=== PATIENT | male | born 1965 | race Caucasian/White ===

== ENCOUNTER 2019-08-15 15:09 | Outpatient (RCR) | payer OTHER, SELFPAY ==
--- NOTE | 2019-08-16 07:23 | HP.OTEVAL ---
Patient's Visit Information NICOLE PORTILLO is a 53 year old M, referred to Occupational Therapy by Chandu Magana MD, with a diagnosis of LE lymphedema. Date of Evaluation: 08/15/19 Occupational Therapist: Helen Bailey, MIMA/Nguyen, CHT - Subjective Subjective: This 53-year-old male was seen for OT eval with dx of lymphedema- pt states he noticed swelling in LE since 2018. pt state [id number] pt states he did notice swelling in left LE but thought it was due to scar tissue from fx and sx. pt states he did try compression socks, but he had a hard time getting time on. pt states he has constant itching of the skin- he states he has used a moisturizer and cortisone cream. Pt is in wc most of the time with his legs down and does not elevate his legs much- pt would like to know. where he can get a compression pump for his LE. Pt states has recommended it to him, but he is concerned with the pressure on his legs. - Pain bilateral LE 3 Pain Intensity Range: 3 - Lymphedema (Circumferential Measure) Mid-foot: right 30cm left 26cm Ankle: right 34cm left 38cm Lower calf: right 37cm left 42cm Largest calf: right 47cm left 46cm Below knee: right 40cm left 39cm - Sensation Sensation Comments: pins and needles sensation with buring - Lower Limb Functional Index Lower Extremity Functional Score: 23 - Rehabilitation General Assessment: Pt demo with BLE lymphedema in need of ed. on what dx is and mtg of lymphedema. Pt demo with minimual mobility in ankle and toes due to swelling and past hx of bilateral ankle sx. Pt would benefit from skilled OT services 3 visits to ensure ed. on mtg of lymphedema- pt was ed. on lymphedema compression garments- pt is unable to put compression hose on so therapist ed. pt on velcro closure compression alternatives, lymphedema system, lymph ex. to stimulate circulation pt was given handout and agree to POC. Rehabilitation Potential: Questionable - Anticipated Interventions Anticipated Interventions: Education re Life-long lymphedema Management, Education re Self-Bandaging Techniques, Education re Skin Care and Precautions, Education re Correct Donning Tech,Care&Wearing Sched Comp Garments, Caregiver Training - Visit Plan TEXT: Thank you for the opportunity to evaluate your patient. For Medicare and Medicare HMO plans, please review the plan of care and approve it. It will need to be FAXED BACK to us at [phone] for Medicare purposes. Please let me know if there are questions or concerns regarding this plan of care. Physician Signature: Date:
--- NOTE | 2019-10-14 18:15 | HP.OTDCNRP_ITS ---
HP - Discharge Summary - Patient Information NICOLE PORTILLO was seen in my office for initial evaluation on 08/15/19. The following Plan of Care was established for this patient: - Anticipated Interventions Anticipated Interventions: Education re Life-long lymphedema Management, E ducation re Self-Bandaging Techniques, Education re Skin Care and Precautions, Education re Correct Donning Tech,Care&Wearing Sched Comp Garments, Caregiver Training This patient was last seen in our office 08/15/19. Pertinent comments regarding their Occupational therapy will appear below: PT was seen for OT eval only. Pt called with question on compression garment first week of Sep. Therapist has attempted to call pt x2 with two different numbers but has not been able to speak with pt to answer his questions. Pt d/c from OT due to time lapse in services. At this point I will be discontinuing this patient from occupational therapy. I would be happy to see this patient again in the future if found appropriate by the physician. Thank you! Helen Bailey, OTR/L, CHT
== END 2019-08-15 19:00 | disposition home or self-care (01) ==
LOC: OT 15:09
PROVIDERS: Family Provider Family Medicine; PCP Family Medicine; Referring Provider Family Medicine; Visit Provider Family Medicine
DX: I89.0 Lymphedema, not elsewhere classified (principal)
CPT/HCPCS: 97166

== ENCOUNTER 2025-07-19 20:55 | Inpatient (IN) | payer SELFPAY ==
[2025-07-19 20:59] VITALS: BP 137/96; PULSE 108; RESP 20; TEMP 36.9; O2SAT 89; BMI 29.0
[2025-07-19 21:03] VITALS: BP 137/96; PULSE 105; PULSE 108; RESP 20; TEMP 36.9; O2SAT 92; O2SAT 94
--- NOTE | 2025-07-19 21:24 | CT_ITS ---
PROCEDURE: CTA CHEST W/WO CONTRAST 07/19/2025 REASON FOR EXAM: RULE OUT PE TECHNIQUE: Procedure Code: [id number] Modality: CT Procedure: CTA CHEST W/WO CONTRAST Multiplanar Sagittal and Coronal images were obtained. CONTRAST: VOLUME: mL One or more dose reduction techniques were used (e.g., Automated exposure control, adjustment of the mA and/or kV according to patient size, use of iterative reconstruction technique). FINDINGS: Concentrated contrast material within the SVC and left subclavian vein results in streak artifact, limiting evaluation of the adjacent anatomy. No filling defect suggestive of a pulmonary embolism is identified to the secondary branches of the pulmonary arteries. Subtle linear density in the right upper lobe along the major fissure likely represents subsegmental atelectasis or scarring. Infiltrates are less likely. Hazy and reticular opacities in the right lung base are concerning for infiltrates. The heart and great vessels appear unremarkable. Multiple enlarged pretracheal lymph nodes measuring 10 mm in their short axis dimension. Right hilar lymphadenopathy measuring 14 mm in its short axis dimension. No acute osseous abnormality. Moderate dextro convex thoracic scoliosis with mild spondylosis. Cholelithiasis. Large amount of ascites within the visualized upper abdomen. CT/CTA Chest W/WO Contrast IMPRESSION: No CT evidence of a pulmonary embolism. Right pulmonary densities concerning for infiltrates, as described above. Right hilar and mediastinal lymphadenopathy, likely reactive. Cholelithiasis. Ascites. Reading Location: [id number]
--- NOTE | 2025-07-19 21:24 | EKG12_ITS ---
Test Reason : SOB Blood Pressure : */* mmHG Vent. Rate : 102 BPM Atrial Rate : 107 BPM P-R Int : * ms QRS Dur : 86 ms QT Int : 472 ms P-R-T Axes : * 240 49 degrees QTcB Int : 615 ms Critical Test Result: Long QTc Suspect arm lead reversal, interpretation assumes no reversal Normal sinus rhythm Lateral infarct , age undetermined Inferior-posterior infarct , age undetermined Prolonged QT Abnormal ECG Confirmed by CLAUDIO KASPER, MARIELENA ([id number]), photographic editor GEREMIAS VEGA ([id number]) on 07/21/2025 1:43:51 PM Referred By: Confirmed By: MARIELENA SNYDER MD
--- NOTE | 2025-07-19 21:25 | CT_ITS ---
PROCEDURE: ABDOMEN/PELVIS W IV CONT ONLY 07/19/2025 REASON FOR EXAM: FEELS UNWELL, EPIGASTRIC PAIN TECHNIQUE: Procedure Code: [id number] Modality: CT Procedure: ABDOMEN/PELVIS W IV CONT ONLY Coronal and Sagittal reconstruction series were provided. CONTRAST: VOLUME: mL One or more dose reduction techniques were used (e.g., Automated exposure control, adjustment of the mA and/or kV according to patient size, use of iterative reconstruction technique. FINDINGS: For findings above the diaphragm, please refer to the dedicated CTA of the chest performed on the same day. A large amount of ascites is noted throughout the peritoneal cavity, which limits evaluation. Localization of inflammatory changes is significantly hampered. A nodular contour of the liver is noted, which could indicate underlying chronic hepatocellular disease. Cholelithiasis. No gallbladder wall thickening. A small focus of air is also noted within the fundus of the gallbladder. Mild wall thickening of the right side of the colon, concerning for mild colitis. The appendix is visualized and normal-appearing. No evidence of a bowel obstruction. Several nondilated air- filled loops of large and small bowel likely represent mild adynamic ileus. Mild atherosclerotic calcifications. Mild dextro convex thoracolumbar scoliosis with moderate spondylosis. Severe degenerative changes are noted within the left hip including severe superior joint space narrowing with [id number] interaction, articular surface flattening, subchondral cyst formation, and marginal osteophytosis. An incompletely imaged intramedullary cayla is noted within the proximal left femur. Total right hip arthroplasty. CT/Abdomen/Pelvis W IV Cont ONLY IMPRESSION: Large amount of ascites. Cholelithiasis. Mild wall thickening of the right side of the colon, concerning for mild coliti s. Mild adynamic ileus of the bowel. Additional nonacute findings, as described above. Reading Location: [id number]
[2025-07-19 21:44] LABS: Hematocrit 29.6 % (40-54); Hemoglobin 9.8 g/dL (13.0-16.5); Immature Granulocytes Count 0.020 X10^3/uL (0.0-0.0); Mean Corp Hgb Conc 33.1 g/dL (32-36); Mean Corpuscular Volume 81.1 fL (80-94); Mean Platelet Vol. 8.9 fl (6.2-12.0); NRBC Flagged by Analyzer 0 % (0-5); Platelet Count 185 K/mm3 (150-450); RBC Distribution Width CV 14.6 % (11.6-14.6); RBC Distribution Width SD 43.0 fl (35.1-43.9); Red Blood Count 3.65 M/mm3 (4.6-6.2); White Blood Count 3.6 K/mm3 (4.4-11.0)
[2025-07-19 22:03] VITALS: BP 99/74; PULSE 104; RESP 18; TEMP 37.3; O2SAT 97
[2025-07-19 22:04] LABS: Lipase 91 U/L (13-75)
[2025-07-19 22:05] LABS: AST(SGOT) 50 U/L (<=37); Alanine Aminotransfer ALT/SGPT 20 U/L (<=46); Albumin, Serum 2.1 g/dL (3.4-4.8); Alkaline Phosphatase 773 U/L (40-129); Anion Gap 8 (5-15); BUN 9 mg/dL (4-19); BUN/Creat Ratio 12.7 RATIO (10-20); Calcium,Total 7.5 mg/dL (7.6-11.0); Carbon Dioxide 34.6 mmol/L (21.0-32.0); Chloride 83 mmol/L (98-108); Estimated Creatinine Clearance 126.13 ml/min (50-250); Globulin 2.9 g/dL (2.2-4.2); Glucose 108 mg/dL (70-99); Potassium 2.3 mmol/L (3.3-5.1); Pro- Brain NATRIURETIC PEPTIDE 1067 pg/mL (<=900); Troponin T High Sensitivity 62 ng/L (<=22)
--- NOTE | 2025-07-19 22:17 | EX.ED.DYSGE1 ---
HPI History of Present Illness Chief Complaint: Shortness of Breath Narrative Narrative: Patient is a 59-year-old male presenting to the emergency department for feeling unwell for the past 2 to 3 days. Patient is a very poor historian. He has a past medical history of cirrhosis and has paracentesis done every other week. He had a femur fracture repair done in December and states that he has been in a rehab facility since then. Patient states about 2 days ago he developed URI type symptoms which included congestion, productive cough. He denies fever, chills, chest pain, shortness of breath. Patient states he has some epigastric abdominal discomfort. Denies any nausea or vomiting. Denies any diarrhea. Last had a paracentesis done 3 weeks ago. EMS placed him on oxygen, he does not wear any at baseline. [facility] Medical History unable to obtain Home Medications ?Medication ?Instructions ?Recorded ?Last Taken ?Type aspirin 81 mg capsule 81 mg PO BID 07/19/25 Unknown History bumetanide 1 mg tablet 1 mg PO BID 07/19/25 Unknown History buspirone 7.5 mg tablet 7.5 mg PO BID 07/19/25 Unknown History clonazepam 0.5 mg tablet 0.5 mg PO BID 07/19/25 Unknown History clonazepam 1 mg tablet 1 mg PO BID 07/19/25 Unknown History docusate sodium 100 mg capsule 100 mg PO BID 07/19/25 Unknown History (Col-Rite) dupilumab 300 mg/2 mL subcutaneous 300 mg subcut .q2w 07/19/25 Unknown History pen injector (Dupixent) fluticasone propionate 50 1 spray intranasal DAILY 07/19/25 Unknown History mcg/actuation nasal spray,suspension (24 Hour Allergy Relief) folic acid 1 mg tablet 1 mg PO DAILY 07/19/25 Unknown History guaifenesin 600 mg tablet, 600 mg PO BID 07/19/25 Unknown History extended release 12 hr levothyroxine 25 mcg tablet 25 mcg PO MOTUWETHFRSA 07/19/25 Unknown History levothyroxine 50 mcg tablet 50 mcg PO PARK 07/19/25 Unknown History (Euthyrox) magnesium gluconate 27 mg 27 mg PO DAILY 07/19/25 Unknown History magnesium (500 mg) tablet (Mag-G) miconazole nitrate 2 % topical 1 applic topical DAILY 07/19/25 Unknown History powder (Antifungal (miconazole)) multivitamin with minerals (DAILY 1 tab PO DAILY 07/19/25 Unknown History VITAMIN FORMULA-MINERALS tablet) pantoprazole 40 mg tablet,delayed 40 mg PO DAILY 07/19/25 Unknown History release potassium chloride 20 mEq 20 meq PO DAILY 07/19/25 Unknown History tablet,extended release sodium bicarbonate 650 mg tablet 650 mg PO BID 07/19/25 Unknown History tamsulosin 0.4 mg capsule (Flomax) 0.4 mg PO BID 07/19/25 Unknown History thiamine HCl (vitamin B1) 100 mg 100 mg PO DAILY 07/19/25 Unknown History tablet Allergy/AdvReac Type Severity Reaction Status Date / Time enoxaparin Allergy Mild Upset Verified 07/19/25 20:57 Stomach Penicillins Allergy Unknown PT UNSURE Verified 07/19/25 20:57 OF REACTION Surgical History unable to obtain Social History Smoking Status: Never smoker ROS ROS ED ROS Narrative see HPI EXAM Physical Exam Narrative Exam Narrative: Vital signs: Reviewed General: Alert and orientedx3. No acute distress. Chronically ill appearing. HEENT: Head is normocephalic and atraumatic, sinuses nontender, pupils equal round and reactive. Nares are patent. Oropharynx and throat exams normal. Neck: Supple without lymphadenopathy nontender Cardiovascular: Tachycardic rate and regular rhythm, no murmurs. No rubs or gallops. Normal S1 and S2 Respiratory: Coarse lung sounds throughout. No wheezing. On 2 L NC saturating 94%. Abdominal: Soft and nontender. Fluid wave. Normal bowel sounds. No guarding or rebound. Nonsurgical abdomen Extremities: Chronic appearing bilateral lower extremity lymphedema. No erythema, warmth, tenderness to palpation. Skin: No rash or redness. Neurological: Cranial nerves II through XII are grossly intact. Normal strength and sensation. Normal cerebellar function The rest of the physical exam is unremarkable Const Vital Signs: 07/19/25 20:59 07/19/25 21:03 07/19/25 21:03 Temperature 98.5 F 98.5 F Temperature Source Oral Oral Pulse Rate 108 H 105 H 108 H Respiratory Rate 20 H 20 H 20 H Respiratory Effort Respiratory Pattern Blood Pressure 137/96 H 137/96 H 137/96 H Blood Pressure Mean 109 109 109 Pulse Ox 89 92 94 Oxygen Delivery Method Room Air Nasal Cannula Nasal Cannula Oxygen Flow Rate (L/min) 2 2 07/19/25 21:44 07/19/25 22:03 07/19/25 22:41 Temperature 99.1 F Temperature Source Oral Pulse Rate 104 H Respiratory Rate 18 Respiratory Effort Normal Non-Labored Respiratory Pattern Normal Blood Pressure 99/74 Blood Pressure Mean 82 Pulse Ox 97 Oxygen Delivery Method Nasal Cannula Nasal Cannula Nasal Cannula Oxygen Flow Rate (L/min) 2 2 2 07/19/25 23:00 07/20/25 00:00 Temperature 98.4 F 98.5 F Temperature Source Oral Oral Pulse Rate 103 H 100 Respiratory Rate 23 H 24 H Respiratory Effort Respiratory Pattern Blood Pressure 132/99 H 126/89 H Blood Pressure Mean 110 101 Pulse Ox 95 100 Oxygen Delivery Method Nasal Cannula Nasal Cannula Oxygen Flow Rate (L/min) 2 2 MDM MDM MDM Narrative Medical decision making narrative: Patient is a 59-year-old male presenting to the emergency department for URI type symptoms. Patient was seen and examined. He is mildly tachycardic at 108, appears comfortable. BP of 137/96. He is afebrile saturating 94% on 2 L nasal cannula. Differential includes but is not limited to: PE, pneumonia, URI, ACS, pleural effusion. Patient does have significant ascites however has no abdominal pain on exam, he is afebrile. I do not think this is SBP. Given the patient's immobilization, CTA of the chest was obtained to rule out pulmonary embolism. Given the patient's tachycardia and new oxygen requirement labs were obtained to evaluate for sepsis as well. CBC with leukopenia of 3.6 and anemia of 9.8. No baseline to compare to. CMP with hypokalemia of 2.3 and hyponatremia 126. Potassium was repleted IV and p.o. Hypomagnesia of 1.1, IV repletion given. Mildly elevated AST of 50 and elevated alk phos of 773. Elevated troponin of 62 with reflex of 64 no significant delta change and BNP of 1067. Again no baseline labs to compare to but I do suspect that his troponin and BNP are elevated at baseline due to his cirrhosis. EKG shows low voltage QRS, very difficulty to interpret based off this. Appears to be NSR, no ischemic changes. No dysrhythmia. CTA of the chest shows no evidence of pulmonary embolism. Right pulmonary densities concerning for infiltrates. There are right hilar and mediastinal lymphadenopathy. CT abdomen with large amount of ascites. Cholelithiasis. Mild right sided colitis and mild adynamic ileus of the bowel. Patient will require admission for his electrolyte abnormalities and oxygen requirement. Patient was given Levaquin given allergy to penicillins with unknown reaction. Patient admitted to Dr. Guy for further management. Clinical impression Hypomagnesia Hypokalemia Hyponatremia Elevated troponin Ascites Pneumonia History & Record Review Discussion w/independent historian: EMS personnel and Patient Lab Data Attestation: I reviewed the patient's lab results. Labs: Laboratory Results - last 24 hr 07/19/25 07/19/25 07/19/25 19:39 21:15 23:31 WBC 3.6 L RBC 3.65 L Hgb 9.8 L Hct 29.6 L MCV 81.1 MCH 26.8 L MCHC 33.1 RDW Std Deviation 43.0 RDW Coeff of Mery 14.6 Plt Count 185 MPV 8.9 Immature Gran % (Auto) 0.600 Neut % (Auto) 72.4 H Lymph % (Auto) 17.5 L [place] % (Auto) 7.5 Eos % (Auto) 1.4 Baso % (Auto) 0.6 Absolute Neuts (auto) 2.6 Absolute Lymphs (auto) 0.63 L Nucleated RBC % 0 Sodium 126 L Potassium 2.3 L* Chloride 83 L Carbon Dioxide 34.6 H Anion Gap 8 BUN 9 Creatinine 0.71 Estim Creat Clear Calc 126.13 Est GFR (MDRD) Non-Af 105 BUN/Creatinine Ratio 12.7 Glucose 108 H Lactic Acid 1.0 Calcium 7.5 L Magnesium 1.1 L Total Bilirubin 1.23 AST 50 H ALT 20 Alkaline Phosphatase 773 H Troponin T High Sens 62 H* Troponin T Hi Sens 2 Hr NT pro BNP II 1067 H Total Protein 4.9 L Albumin 2.1 L Globulin 2.9 Albumin/Globulin Ratio 0.7 L Lipase 91 H Urine Color Yellow Urine Clarity Clear Urine pH 7.0 Ur Specific [place] 1.005 Urine Protein Negative Urine Glucose (UA) Normal Urine Ketones Negative Urine Occult Blood Negative Urine Nitrite Negative Urine Bilirubin Negative Urine Urobilinogen 1 H Ur Leukocyte Esterase Negative Urine RBC 0 SEEN Urine WBC 0 SEEN Ur Squamous Epith Cells 0 SEEN Urine Bacteria 0 SEEN Urine Mucus 0 SEEN 07/19/25 23:37 WBC RBC Hgb Hct MCV MCH MCHC RDW Std Deviation RDW Coeff of Mery Plt Count MPV Immature Gran % (Auto) Neut % (Auto) Lymph % (Auto) [place] % (Auto) Eos % (Auto) Baso % (Auto) Absolute Neuts (auto) Absolute Lymphs (auto) Nucleated RBC % Sodium Potassium Chloride Carbon Dioxide Anion Gap BUN Creatinine Estim Creat Clear Calc Est GFR (MDRD) Non-Af BUN/Creatinine Ratio Glucose Lactic Acid Calcium Magnesium Total Bilirubin AST ALT Alkaline Phosphatase Troponin T High Sens Troponin T Hi Sens 2 Hr 64 H* NT pro BNP II Total Protein Albumin Globulin Albumin/Globulin Ratio Lipase Urine Color Urine Clarity Urine pH Ur Specific [place] Urine Protein Urine Glucose (UA) Urine Ketones Urine Occult Blood Urine Nitrite Urine Bilirubin Urine Urobilinogen Ur Leukocyte Esterase Urine RBC Urine WBC Ur Squamous Epith Cells Urine Bacteria Urine Mucus Radiography Diagnostic Testing: Clinical Impression(s) from Imaging Studies Chest CTA 07/19/25 21:24 IMPRESSION: No CT evidence of a pulmonary embolism. Right pulmonary densities concerning for infiltrates, as described above. Right hilar and mediastinal lymphadenopathy, likely reactive. Cholelithiasis. Ascites. Reading Location: [facility] Abdomen/Pelvis CT 07/19/25 21:25 IMPRESSION: Large amount of ascites. Cholelithiasis. Mild wall thickening of the right side of the colon, concerning for mild colitis. Mild adynamic ileus of the bowel. Additional nonacute findings, as described above. Reading Location: [facility] Discharge Plan Triage Chief Complaint: Shortness of Breath ED Provider: Elizabeth Agee Dx/Rx/DC Orders Prescriptions: No Action aspirin 81 mg capsule 81 mg PO BID clonazepam 1 mg tablet 1 mg PO BID buspirone 7.5 mg tablet 7.5 mg PO BID bumetanide 1 mg tablet 1 mg PO BID clonazepam 0.5 mg tablet 0.5 mg PO BID docusate sodium [Col-Rite] 100 mg capsule 100 mg PO BID Dupixent Pen 300 mg/2 mL pen injector 300 mg subcut .q2w fluticasone propionate [24 Hour Allergy Relief] 50 mcg/actuation spray,suspension 1 spray intranasal DAILY Rx Instructions: administer into each nostril folic acid 1 mg tablet 1 mg PO DAILY guaifenesin 600 mg tablet extended release 12hr 600 mg PO BID levothyroxine 25 mcg tablet 25 mcg PO MOTUWETHFRSA levothyroxine [Euthyrox] 50 mcg tablet 50 mcg PO PARK magnesium gluconate [Mag-G] 27 mg magnesium (500 mg) tablet 27 mg PO DAILY miconazole nitrate [Antifungal (miconazole)] 2 % powder 1 applic topical DAILY sodium bicarbonate 650 mg tablet 650 mg PO BID pantoprazole 40 mg tablet,delayed release (DR/EC) 40 mg PO DAILY potassium chloride 20 mEq tablet extended release 20 meq PO DAILY DAILY VITAMIN FORMULA-MINERALS Tablet 1 tab PO DAILY tamsulosin [Flomax] 0.4 mg capsule 0.4 mg PO BID thiamine HCl (vitamin B1) 100 mg tablet 100 mg PO DAILY Primary Care Provider: Chandu Magana Referrals: Chandu Magana MD [Primary Care Provider, Medical] Print Language: Latvian
[2025-07-19] MEDS: Potassium Chloride Oral Tablet 20 MEQ 40 MEQ PO (22:29)
[2025-07-19] MEDS: Potassium Chloride 10mEq/100mL 10 MEQ/100 ML IV.SOLN. 100 MEQ IV BOLUS ×2 (22:29→23:31)
[2025-07-19 23:00] VITALS: BP 132/99; PULSE 103; RESP 23; TEMP 36.9; O2SAT 95
[2025-07-19 23:25] LABS: Magnesium 1.1 mg/dL (1.5-2.2)
[2025-07-19 23:35] LABS: Mucous, Urine 0 SEEN /hpf (<or=2+); Red Blood Cells-Urine 0 SEEN /hpf (0-5); Squamous Epithelial Cells - UA 0 SEEN /hpf (0-5)
[2025-07-19 23:39] LABS: Color, Urine Yellow (Yellow); Glucose, Dipstick Normal (Normal); Ketone-Dipstick Negative (Negative); Leukocyte Esterase-Dipstick Negative /ul (Negative); Nitrite-Dipstick Negative (Negative); Occult Blood-Urine Negative /ul (Negative); Protein-Dipstick Negative (Negative); Specific Gravity, Urine 1.005 (1.002-1.030); Urine Bilirubin Dipstick Negative (Negative)
[2025-07-20] VITALS (14 sets, daily range): BP systolic 90–126; BP diastolic 57–91; PULSE 82–114; RESP 16–25; TEMP 36.6–37.2; O2SAT 92–100; BMI 23.6; BMI 23.8
--- NOTE | 2025-07-20 00:02 | EKG12_ITS ---
Test Reason : REPEAT Blood Pressure : */* mmHG Vent. Rate : 100 BPM Atrial Rate : 100 BPM P-R Int : 184 ms QRS Dur : 64 ms QT Int : 316 ms P-R-T Axes : 27 265 39 degrees QTcB Int : 407 ms Sinus rhythm with occasional Premature ventricular complexes Possible Right ventricular hypertrophy Inferior infarct , age undetermined Anterolateral infarct , age undetermined Abnormal ECG Confirmed by CLAUDIO KASPER, MARIELNEA ([id number]), purchasing expeditor GEREMIAS VEGA ([id number]) on 07/21/2025 1:44:12 PM Referred By: Confirmed By: MARIELENA SNYDER MD
[2025-07-20 00:03] LABS: Troponin T High Sens 2 HR 64 ng/L (<=22)
[2025-07-20] MEDS: Magnesium Sulfate 2 GM in Dextrose 5%-Water (100mL Bag) 100 ML IV ×2 (00:07→10:30)
--- NOTE | 2025-07-20 00:57 | HP.PCM.HOS_ITS ---
HPI - General General Date of Admission: 07/20/25 Date of Service: 07/20/25 Chief Complaint: Shortness of breath HPI Narrative NICOLE PORTILLO, is a 59 M who presented to the emergency department at [facility] on 07/19/2025 from the [facility] for shortness of breath. The patient reported that he felt like he was getting a cold the last 2 to 3 days. He has a history of cirrhosis and has paracenteses done every other week. He is overdue for his paracentesis his transportation was not able to be arranged to [place] where he typically gets his procedure done. He had a femoral fracture repair done in December and was initially at [facility] for rehab. He was unhappy there and then transferred to the [facility]. He states he has only been there a few days. I asked him what the overall prognosis was for his liver and if he was on a transplant list he said no. He follows with his primary care physician and does not see gastroenterology or transplant team regularly. His cirrhosis is related to previous alcohol abuse. Patient states he has had some congestion in his chest and nasal cavity as well as mild pharyngitis and a productive cough of white phlegm. He has had no fever or chills per his report. He has no significant abdominal pain. He has some mild epigastric discomfort which she states is pretty typical for him when he misses having paracentesis done. When I asked him why he was here he states I do not know why they sent me in. He states his baseline sodium is between 121 and 123. He no longer drinks. He denies ever using drugs. He does not smoke. Vital signs on presentation showed temperature 98.5, heart rate 108, respiratory 20, blood pressure was 137/96 and pulse ox was 89% on room air. Placed on 2 L nasal cannula and sats have improved to 97-100 %. CBC shows leukopenia which I suspect is chronic however baseline is unknown, anemia with a hemoglobin of 9.8 again I suspect this is chronic but again baseline is unknown. Surprisingly, his platelet count is normal. He has a minimal left shift with a 72.4% neutrophilia. Coags are slightly elevated with a PT of 15 and a PTT of 40.3. His chemistry panel is markedly abnormal with a sodium of 126 (patient states baseline is between 121 and 123), hypokalemia potassium of 2.3 and elevated serum bicarb at 34.6 which again I suspect is chronic. Lactic acid was normal at 1.0. His magnesium was low at 1.1. Alk phos is elevated at 773. His initial troponin was 62 with a delta of 64. 4-hour troponin is pending. His BNP was only marginally elevated 1067. Lipase was slightly elevated at 91 but patient not having abdominal pain. UA was not consistent with infection. He has 1 urobilinogen but all other tested aspects of the urinalysis were negative. With his recent fractures PE was of concern. CT of his chest was performed and unremarkable. He does have what appears to be an elevated right hemidiaphragm with significant ascites pushing up into the right base of the lung just surrounding the liver upon my review he does not have a distinct infiltrate. CT abdomen/pelvis was performed and showed large volume ascites, cholelithiasis, thickening of the right colon, and a mild adynamic ileus. [facility] Medical History (Updated 07/20/25 @ 02:[address] Mira Guy, DO) Hip fracture requiring operative repair Chronic edema Hip fracture, left History of alcoholism Lymphopenia Chronic hyponatremia Chronic anemia Alcoholic cirrhosis of liver Medical History unable to obtain Home Medications ?Medication ?Instructions ?Recorded ?Last Taken ?Type aspirin 81 mg capsule 81 mg PO BID 07/19/25 Unknow n History bumetanide 1 mg tablet 1 mg PO BID 07/19/25 Unknown History buspirone 7.5 mg tablet 7.5 mg PO BID 07/19/25 Unkno wn History clonazepam 0.5 mg tablet 0.5 mg PO BID 07/19/25 Unkno wn History clonazepam 1 mg tablet 1 mg PO BID 07/19/25 Unknown History docusate sodium 100 mg capsule 100 mg PO BID 07/19/25 Unknown History (Col-Rite) dupilumab 300 mg/2 mL subcutaneous 300 mg subcut .q2w 07/19/25 Unknown History pen injector (Dupixent) fluticasone propionate 50 1 spray intranasal DAILY Unknown History mcg/actuation nasal spray,suspension (24 Hour Allergy Relief) folic acid 1 mg tablet 1 mg PO DAILY 07/19/25 Unkno wn History guaifenesin 600 mg tablet, 600 mg PO BID 07/19/25 Unkn own History extended release 12 hr levothyroxine 25 mcg tablet 25 mcg PO MOTUWETHFRSA Unknown History levothyroxine 50 mcg tablet 50 mcg PO PARK 07/19/25 Unkn own History (Euthyrox) magnesium gluconate 27 mg 27 mg PO DAILY 07/19/25 Unkn own History magnesium (500 mg) tablet (Mag-G) miconazole nitrate 2 % topical 1 applic topical DAILY 07/19/25 Unknown History powder (Antifungal (miconazole)) multivitamin with minerals (DAILY 1 tab PO DAILY 07/19 Unknown History VITAMIN FORMULA-MINERALS tablet) pantoprazole 40 mg tablet,delayed 40 mg PO DAILY 07/19 Unknown History release potassium chloride 20 mEq 20 meq PO DAILY 07/19/25 Unk nown History tablet,extended release sodium bicarbonate 650 mg tablet 650 mg PO BID 5 Unknown History tamsulosin 0.4 mg capsule (Flomax) 0.4 mg PO BID 07/19 Unknown History thiamine HCl (vitamin B1) 100 mg 100 mg PO DAILY 07/19 Unknown History tablet Allergy/AdvReac Type Severity Reaction Status Date / Time enoxaparin Allergy Mild Upset Verified 07/19/25 20:57 Stomach Penicillins Allergy Unknown PT UNSURE Verified 07/19/25 20:57 OF REACTION Surgical History (Updated 07/20/25 @ 02:[address] Mira Guy DO) History of right hip replacement Surgical History unable to obtain Social History Smoking Status: Never smoker ROS Constitutional Constitutional: Reports fatigue; Denies anorexia, change in weight, chills, fever(s), malaise, night sweats, weakness or other Eyes Eyes: Denies blurry vision, change in eye color, change in vision, discharge from eye(s), double vision, erythema, eye pain, loss of vision or other ENT HEENT: Reports nasal congestion, nasal discharge, post nasal drip and sore throat; Denies abnormal hearing, dysphagia, ear pain, epistaxis, headache(s), hearing loss, sinus pressure or other Cardiovascular Cardiovascular: Reports edema; Denies chest pain, claudication, dyspnea on exertion, lightheadedness, orthopnea, palpitations, paroxysmal nocturnal dyspnea, rapid heart rate, syncope or other Respiratory/Chest Respiratory/Chest: Reports cough, dyspnea, productive cough, shortness of breath at rest and shortness of breath with exertion; Denies excessive phlegm production, hemoptysis, wheezing or other Gastrointestinal Gastrointestinal: Reports other Details: Abdominal distention due to ascites ; Denies abdominal pain, coffee ground emesis, constipation, diarrhea, dyspepsia, hematemesis, hematochezia, loose stools, melena, nausea or vomiting Genitourinary Genitourinary: Denies burning urination, difficulty urinating, dysuria, hematuria, nocturia, urinary frequency, urinary hesitancy, urinary incontinence, urinary urgency or other Musculoskeletal Musculoskeletal: Reports joint pain; Denies arthralgias, back pain, joint stiffness, joint swelling, myalgias, neck pain or other Neurologic Neurologic: Reports abnormal gait; Denies abnormal speech, confusion, disequilibrium, dizziness, focal weakness, headache(s), numbness, paresthesias, seizure-like activity, seizures, syncope, tingling, tremor(s) or other Psychiatric Psychiatric: Reports anxiety and depression; Denies homicidal ideation, suicidal ideation or other Endocrine Endocrinology: Denies change in body appearance, cold intolerance, excessive sweating, heat intolerance, polydipsia, polyuria or other Hematologic/Lymphatic Hematologic/Lymphatic: Denies anemia, easy bleeding, easy bruising, lymphadenopathy or other Allergic/Immunologic Allergic/Immunologic: Denies rhinitis, hives, eczemia, asthma or other Vital Signs Vital Signs Vital Signs: 07/19/25 20:59 07/19/25 21:03 07/19/25 21:03 Temperature 98.5 F 98.5 F Temperature Source Oral Oral Pulse Rate 108 H 105 H 108 H Respiratory Rate 20 H 20 H 20 H Respiratory Effort Respiratory Pattern Blood Pressure 137/96 H 137/96 H 137/96 H Blood Pressure Mean 109 109 109 Pulse Ox 89 92 94 Oxygen Delivery Method Room Air Nasal Cannula Nasal Cannula Oxygen Flow Rate (L/min) 2 2 07/19/25 21:44 07/19/25 22:03 07/19/25 22:41 Temperature 99.1 F Temperature Source Oral Pulse Rate 104 H Respiratory Rate 18 Respiratory Effort Normal Non-Labored Respiratory Pattern Normal Blood Pressure 99/74 Blood Pressure Mean 82 Pulse Ox 97 Oxygen Delivery Method Nasal Cannula Nasal Cannula Nasal Cannula Oxygen Flow Rate (L/min) 2 2 2 07/19/25 23:00 07/20/25 00:00 Temperature 98.4 F 98.5 F Temperature Source Oral Oral Pulse Rate 103 H 100 Respiratory Rate 23 H 24 H Respiratory Effort Respiratory Pattern Blood Pressure 132/99 H 126/89 H Blood Pressure Mean 110 101 Pulse Ox 95 100 Oxygen Delivery Method Nasal Cannula Nasal Cannula Oxygen Flow Rate (L/min) 2 2 Weight Weight: 92 kg Body Mass Index (BMI) 29.0 Results Lab / Micro Data 07/19/25 21:15 07/19/25 21:15 Labs: Laboratory Results - last 24 hr 07/19/25 19:39: Lactic Acid 1.0 07/19/25 21:15: WBC 3.6 L, RBC 3.65 L, Hgb 9.8 L, Hct 29.6 L, MCV 81.1, MCH 26.8 L, MCHC 33.1, RDW Std Deviation 43.0, RDW Coeff of Mery 14.6, Plt Count 185, MPV 8.9, Immature Gran % (Auto) 0.600, Neut % (Auto) 72.4 H, Lymph % (Auto) 17.5 L, [place] % (Auto) 7.5, Eos % (Auto) 1.4, Baso % (Auto) 0.6, Absolute Neuts (auto) 2.6, Absolute Lymphs (auto) 0.63 L, Nucleated RBC % 0, Sodium 126 L, Potassium 2.3 L*, Chloride 83 L, Carbon Dioxide 34.6 H, Anion Gap 8, BUN 9, Creatinine 0.71, Estim Creat Clear Calc 126.13, Est GFR (MDRD) Non-Af 105, BUN/Creatinine Ratio 12.7, Glucose 108 H, Calcium 7.5 L, Magnesium 1.1 L, Total Bilirubin 1.23, AST 50 H, ALT 20, Alkaline Phosphatase 773 H, Troponin T High Sens 62 H*, NT pro BNP II 1067 H, Total Protein 4.9 L, Albumin 2.1 L, Globulin 2.9, A lbumin/Globulin Ratio 0.7 L, Lipase 91 H 07/19/25 23:31: Urine Color Yellow, Urine Clarity Clear, Urine pH 7.0, Ur Specific [place] 1.005, Urine Protein Negative, Urine Glucose (UA) Normal, Urine Ketones Negative, Urine Occult Blood Negative, Urine Nitrite Negative, Urine Bilirubin Negative, Urine Urobilinogen 1 H, Ur Leukocyte Esterase Negative, Urine RBC 0 SEEN, Urine WBC 0 SEEN, Ur Squamous Epith Cells 0 SEEN, Urine Bacteria 0 SEEN, Urine Mucus 0 SEEN 07/19/25 23:37: Troponin T Hi Sens 2 Hr 64 H* Micro: Microbiology 07/19/25 21:24 Mucosa - Nose SARS-CoV-2, Influenza & RSV (PCR) - Final Imaging Radiology Impression Chest CTA 07/19/25 21:24 IMPRESSION: No CT evidence of a pulmonary embolism. Right pulmonary densities concerning for infiltrates, as described above. Right hilar and mediastinal lymphadenopathy, likely reactive. Cholelithiasis. Ascites. Reading Location: [facility] Abdomen/Pelvis CT 07/19/25 21:25 IMPRESSION: Large amount of ascites. Cholelithiasis. Mild wall thickening of the right side of the colon, concerning for mild colitis. Mild adynamic ileus of the bowel. Additional nonacute findings, as described above. Reading Location: [facility] Assessment & Plan Assessment/Plan (1) Metabolic alkalosis: (2) Elevated brain natriuretic peptide (BNP) level: (3) Elevated troponin I level: (4) Shortness of breath: (5) Hypomagnesemia: (6) Acute hypokalemia: (7) Hypoxia: (8) Ascites due to alcoholic cirrhosis: PLAN: Plan Hypoxia/shortness of breath - Hypoxia mild at rest and 89% - PE ruled out with negative CTA of the chest - patient with large volume ascites likely compressive atelectasis in the right lower lobe that may be contributing - Also suspect upper respiratory infection - Since patient is effectively immunocompromised with cirrhosis will place on Levaquin for 5 days -Okay for p.o. as does not appear to be severe - Pulmonary toilet - I-S - Acapella - Mucinex - COVID/flu/RSV is negative - Check respiratory viral panel Large volume ascites secondary to chronic alcoholic cirrhosis - No concerns for SBP - Therapeutic paracentesis performed by me at the time of admission for his 6.2 L -12.5 postprocedure grams of albumin given per guidelines - Will need to get back on schedule for his every other week paracentesis post discharge - Continue home Bumex and increase to 1 mg 3 times daily. - Add Aldactone 50 mg daily - Consult palliative care Elevated BNP/troponin - Suspect related to liver disease - Will check echocardiogram - Cycle cardiac enzymes - Continue diuretics with Bumex but increase from 1 twice daily to 1 3 times daily Metabolic alkalosis - Patient has been on oral sodium bicarb at 650 mg twice daily -Will hold for now as serum bicarb is 35 - May need to discontinue bicarb at discharge depending on what labs look like Recent left femoral fracture - Weightbearing status unclear will need to get this information from the facility - PT/OT consultation - Will consult case management as I do anticipate patient will need placement at discharge GERD - Continue home PPI Hypothyroidism - Continue home levothyroxine - Check TSH Eczema/allergies - Patient is on home biologic every 2 weeks - Continue home nasal spray Chronic constipation - Continue home docusate 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
[2025-07-20 01:18] LABS: Prothrombin Time (Protime)PT. 15.0 SECONDS (11.7-14.9)
[2025-07-20 01:19] LABS: Partial Thromboplast Time 40.3 Seconds (24.1-36.2)
[2025-07-20] MEDS: levoFLOXacin IV 750 MG/150 ML BAG 100 MG IV (01:33)
[2025-07-20 02:41] LABS: Troponin T High Sens 4 HR 62 ng/L (<=22)
[2025-07-20] MEDS: Lidocaine 1% (20 ml mdv) 20 ML Vial INFILT (03:10)
--- NOTE | 2025-07-20 03:16 | PCM.OPRPT ---
Procedures Hospitalists Procedures: Other Procedure - See Report (Paracentesis) Operative Report (Standard) Operative Information Date of Procedure: 07/20/25 Pre-Operative Diagnosis: Ascites secondary to alcoholic cirrhosis Post-Operative Diagnosis: Ascites secondary to alcoholic cirrhosis Surgery/Procedure Performed: Paracentesis portfolio management marketing: No Type of Anesthesia: Local Procedure Start Time: 02:35 Procedure Stop Time: 03:10 Select all DRAINS/GRAFTS/IMPLANTS that apply: None Estimated Blood Loss: 0 cc Fluids Replaced: Albumin 12.5 g given Specimen collected: Yes Description of specimen(s) removed: 6.2 L of yellow ascitic fluid removed Description of surgery: Abdomen was assessed with ultrasound and large pocket of ascitic fluid identified. Insertion site was numbed after chlorhexidine prep with 5 cc of lidocaine 1% with no epinephrine. The needle then was advanced in subcutaneous and peritoneal lining was anesthetized with another 5 cc of lidocaine. The area was allowed to anesthetize after which a larger Angiocath needle was placed. Aspiration of ascitic fluid was obtained and the Angiocath was guided over top of the needle with the needle being removed. Following this the connecting catheter was placed and vacuum bottles were utilized to remove 6.2 L of fluid. Surgical Findings: 6.2 L of transparent yellow ascitic fluid removed Complications Complications: No
--- NOTE | 2025-07-20 03:29 | ECHOCS_ITS ---
Reason For Study Reason For Study: DYSPNEA Procedure This was a 2D Doppler, Color Flow transthoracic echocardiogram. The study was technically difficult. Definity deferred due to no on axis windows. Exam performed portable in patient room. Left Ventricle Normal LV size. The left ventricular ejection fraction is 60 %. Stage 1 diastolic dysfunction. No regional wall motion abnormalities noted. Right Ventricle Normal RV size. Normal systolic function. Atria Normal left atrium. Normal right atrium. Mitral Valve Normal mitral valve. Tricuspid Valve Normal tricuspid valve. Aortic Valve Trisinus/trileaflet aortic valve. Pulmonic Valve Normal pulmonic valve. Great Vessels Normal aortic root. The pulmonary artery is normal size. Inferior vena cava collapse with respiration. Pericardium/Pleural No pericardial effusion. Time Measurements MV dec time: 0.08 sec Doppler Measurements & Calculations MV E max rodney: 41.2 cm/sec Lat Peak E' Rodney: 9.1 cm/sec MV A max rodney: 46.2 cm/sec E/E' lat: 4.5 MV dec slope: 488.3 cm/sec2 MV E/A: 0.89 Ao V2 max: 114.2 cm/sec LV V1 max: 96.3 cm/sec Ao max P.2 mmHg LV V1 max P.7 mmHg Ao V2 mean: 85.4 cm/sec LV V1 mean P.6 mmHg Ao mean P.2 mmHg LV V1 mean: 77.2 cm/sec Ao V2 VTI: 21.0 cm LV V1 VTI: 17.9 cm AV (velocity ratio): 0.85 ECHO/Echo Complete Interpretation Summary Normal LV size. The left ventricular ejection fraction is 60 %. No regional wall motion abnormalities noted. Stage 1 diastolic dysfunction. Ordering Physician: Mira Guy Referring Physician: ESTEPHANIA SY Performed By: Iwona Becker RCS
[2025-07-20] MEDS: Albumin Human 25% (50 mL) 12.5 GM/50 ML IV.SOLN IV (05:03)
[2025-07-20] MEDS: Heparin Injection (Vial) 5,000 UNIT/ML VIAL 5000 UNIT SC ×3 (05:15→21:02)
[2025-07-20 06:25] LABS: Hematocrit 26.0 % (40-54); Hemoglobin 8.7 g/dL (13.0-16.5); Immature Granulocytes Count 0.020 X10^3/uL (0.0-0.0); Mean Corp Hgb Conc 33.5 g/dL (32-36); Mean Corpuscular Volume 81.8 fL (80-94); Mean Platelet Vol. 8.8 fl (6.2-12.0); NRBC Flagged by Analyzer 0 % (0-5); POSITIVE DIFFERENTIAL YES; Platelet Count 151 K/mm3 (150-450); RBC Distribution Width CV 14.6 % (11.6-14.6); RBC Distribution Width SD 43.6 fl (35.1-43.9); Red Blood Count 3.18 M/mm3 (4.6-6.2); White Blood Count 2.2 K/mm3 (4.4-11.0)
[2025-07-20 06:58] LABS: AST(SGOT) 39 U/L (<=37); Alanine Aminotransfer ALT/SGPT 15 U/L (<=46); Albumin, Serum 2.1 g/dL (3.4-4.8); Alkaline Phosphatase 591 U/L (40-129); Anion Gap 8 (5-15); BUN 8 mg/dL (4-19); BUN/Creat Ratio 13.6 RATIO (10-20); Calcium,Total 7.5 mg/dL (7.6-11.0); Carbon Dioxide 34.2 mmol/L (21.0-32.0); Chloride 85 mmol/L (98-108); Estimated Creatinine Clearance 139.85 ml/min (50-250); Globulin 2.6 g/dL (2.2-4.2); Glucose 84 mg/dL (70-99); Magnesium 1.5 mg/dL (1.5-2.2); Potassium 2.9 mmol/L (3.3-5.1)
--- NOTE | 2025-07-20 08:00 | PN.HOSP_ITS ---
Reason for Visit Chief Complaint: Shortness of breath Subjective Subjective Still with lower extremity edema. Abdomen feeling better after the paracentesis. Objective Data Objective Data Vital Signs: Vital Signs Temp Pulse Resp BP Pulse Ox O2 Del Method O2 Flow Rate 36.6 C 92 16 101/73 99 Nasal Cannula 2 07/20/25 04:00 07/20/25 05:28 07/20/25 04:00 07/20/25 05:28 07/20/25 05:28 07/20/25 05:57 07/20/25 05:57 Oxygen Flow Rate (L/min) 2 Oxygen Delivery Method Nasal Cannula Weight: 74.843 kg Body Mass Index (BMI) 23.6 Intake & Output: Intake and Output for Last 24 Hours 07/18/25 07/19/25 07/20/25 23:59 23:59 23:59 Intake Total 100 / 100 504 / 504 Balance 100 / 100 504 / 504 Lab / Micro Data 07/20/25 06:03 07/20/25 06:03 Labs: Laboratory Results - last 24 hr 07/19/25 19:39: Lactic Acid 1.0 07/19/25 21:15: WBC 3.6 L, RBC 3.65 L, Hgb 9.8 L, Hct 29.6 L, MCV 81.1, MCH 26.8 L, MCHC 33.1, RDW Std Deviation 43.0, RDW Coeff of Mery 14.6, Plt Count 185, MPV 8.9, Immature Gran % (Auto) 0.600, Neut % (Auto) 72.4 H, Lymph % (Auto) 17.5 L, [place] % (Auto) 7.5, Eos % (Auto) 1.4, Baso % (Auto) 0.6, Absolute Neuts (auto) 2.6, Absolute Lymphs (auto) 0.63 L, Nucleated RBC % 0, PT 15.0 H, INR 1.2, APTT 40.3 H, Sodium 126 L, Potassium 2.3 L*, Chloride 83 L, Carbon Dioxide 34.6 H, Anion Gap 8, BUN 9, Creatinine 0.71, Estim Creat Clear Calc 126.13, Est GFR (MDRD) Non-Af 105, BUN/Creatinine Ratio 12.7, Glucose 108 H, Calcium 7.5 L, M agnesium 1.1 L, Total Bilirubin 1.23, AST 50 H, ALT 20, Alkaline Phosphatase 773 H, Troponin T High Sens 62 H*, NT pro BNP II 1067 H, Total Protein 4.9 L, A lbumin 2.1 L, Globulin 2.9, Albumin/Globulin Ratio 0.7 L, Lipase 91 H 07/19/25 23:31: Urine Color Yellow, Urine Clarity Clear, Urine pH 7.0, Ur Specific [place] 1.005, Urine Protein Negative, Urine Glucose (UA) Normal, Urine Ketones Negative, Urine Occult Blood Negative, Urine Nitrite Negative, Urine Bilirubin Negative, Urine Urobilinogen 1 H, Ur Leukocyte Esterase Negative, Urine RBC 0 SEEN, Urine WBC 0 SEEN, Ur Squamous Epith Cells 0 SEEN, Urine Bacteria 0 SEEN, Urine Mucus 0 SEEN 07/19/25 23:37: Troponin T Hi Sens 2 Hr 64 H* 07/20/25 01:36: Troponin T Hi Sens 4Hr 62 H* 07/20/25 06:03: WBC 2.2 L, RBC 3.18 L, Hgb 8.7 L, Hct 26.0 L, MCV 81.8, MCH 27.4, MCHC 33.5, RDW Std Deviation 43.6, RDW Coeff of Mery 14.6, Plt Count 151, MPV 8.8, Immature Gran % (Auto) 0.900, Neut % (Auto) 68.6, Lymph % (Auto) 17.1 L , [place] % (Auto) 8.8, Eos % (Auto) 4.1, Baso % (Auto) 0.5, Absolute Neuts (auto) 1.5 L, Absolute Lymphs (auto) 0.37 L, Nucleated RBC % 0, Sodium 127 L, Potassium 2.9 L, Chloride 85 L, Carbon Dioxide 34.2 H, Anion Gap 8, BUN 8, Creatinine 0.58 L, Estim Creat Clear Calc 139.85, Est GFR (MDRD) Non-Af 111, BUN/Creatinine Ratio 13.6, Glucose 84, Calcium 7.5 L, Phosphorus 3.0, Magnesium 1.5, Total Bilirubin 1.03, AST 39 H, ALT 15, Alkaline Phosphatase 591 H, Total Protein 4.7 L, Albumin 2.1 L, Globulin 2.6, Albumin/Globulin Ratio 0.8 L, TSH 2.260 Micro: Microbiology 07/19/25 21:24 Mucosa - Nose SARS-CoV-2, Influenza & RSV (PCR) - Final Radiography Diagnostic Testing: Radiology Impression Chest CTA 07/19/25 21:24 IMPRESSION: No CT evidence of a pulmonary embolism. Right pulmonary densities concerning for infiltrates, as described above. Right hilar and mediastinal lymphadenopathy, likely reactive. Cholelithiasis. Ascites. Reading Location: [facility] Abdomen/Pelvis CT 07/19/25 21:25 IMPRESSION: Large amount of ascites. Cholelithiasis. Mild wall thickening of the right side of the colon, concerning for mild colitis. Mild adynamic ileus of the bowel. Additional nonacute findings, as described above. Reading Location: [facility] Physical Exam Const alert and no apparent distress Constitutional Narrative: Nontoxic. HEENT head/scalp atraumatic and moist oral mucous membranes Resp normal respiratory effort, no retractions, no use of accessory muscles and clear to auscultation bilaterally Cardio regular rate, regular rhythm, S1 normal heart sound and S2 normal heart sound GI normal to inspection, nondistended, normoactive bowel sounds, soft to palpation, non-tender and non-distended Extremity Extremity Narrative: Marked lower extremity edema lymphedematous changes. Nonpitting at this time. No weeping. General Extremity: edema bilateral lower extremity Neuro Sensorium / Orientation: awake and alert Psych affect normal Assessment & Plan Assessment/Plan (1) Metabolic alkalosis: (2) Elevated brain natriuretic peptide (BNP) level: (3) Elevated troponin I level: (4) Shortness of breath: (5) Hypomagnesemia: (6) Acute hypokalemia: (7) Hypoxia: (8) Ascites due to alcoholic cirrhosis: PLAN: Plan Ascites * patient had 6.2 liters removed at bedside on the . Subsequent albumin ordered 12.5g administered. Will given an additional 25g. * 2/2 cirrhosis * on bumetanide at home. spironolactone added. Dyspnea * 2/2 ascites * CT chest w/o PE, infiltrate * COVID 19/RSV/Influenza, resp panel negative * sputum culture ordered * on levofloxacin Hypokalemia/hypomagnesemia * likely 2/2 diuresis * continue replacement for K and Mg Elevated troponins * unclear significance. Levels 62 to 64 to 62. 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 Back to [facility] when medically stable. Apparently patient had only been there for about a day or so before being admitted here. Much of his medical care has been performed at [facility]. Charges/Coding Visit Charges Inpatient E&M: 38759 Subs Hosp L2
[2025-07-20] MEDS: 0.9% Saline Lock 10 ML Syringe IV ×3 (10:25→21:06)
[2025-07-20] MEDS: 0.9% Normal Saline (250mL Bag) 250 ML 15 ML IV (10:25)
[2025-07-20] MEDS: Magnesium Chloride 64 MG Delay Rel.Tablet 128 MG PO (10:31)
[2025-07-20] MEDS: Potassium Chloride Oral Tablet 20 MEQ 60 MEQ PO (10:33)
[2025-07-20] MEDS: Thiamine Hydrochloride 100 MG Tablet PO (10:35)
[2025-07-20] MEDS: Fluticasone 0.05% 1 SPRAY NASAL.SRY NASAL (10:36)
[2025-07-20] MEDS: Albumin Human 25% (100 mL) 25 GM/100 ML BAG IV (10:39)
[2025-07-20] MEDS: Potassium Chloride Oral Tablet 20 MEQ PO (15:15)
[2025-07-21] VITALS (10 sets, daily range): BP systolic 91–107; BP diastolic 58–70; PULSE 67–111; RESP 18–21; TEMP 36.6–37.4; O2SAT 93–100; BMI 23.3
[2025-07-21 06:09] LABS: Hematocrit 23.8 % (40-54); Hemoglobin 8.0 g/dL (13.0-16.5); Immature Granulocytes Count 0.010 X10^3/uL (0.0-0.0); Mean Corp Hgb Conc 33.6 g/dL (32-36); Mean Corpuscular Volume 82.1 fL (80-94); Mean Platelet Vol. 8.8 fl (6.2-12.0); NRBC Flagged by Analyzer 0 % (0-5); POSITIVE DIFFERENTIAL YES; Platelet Count 130 K/mm3 (150-450); RBC Distribution Width CV 14.6 % (11.6-14.6); RBC Distribution Width SD 44.6 fl (35.1-43.9); Red Blood Count 2.90 M/mm3 (4.6-6.2); White Blood Count 2.6 K/mm3 (4.4-11.0)
[2025-07-21 06:31] LABS: AST(SGOT) 30 U/L (<=37); Alanine Aminotransfer ALT/SGPT 10 U/L (<=46); Albumin, Serum 2.0 g/dL (3.4-4.8); Alkaline Phosphatase 384 U/L (40-129); Anion Gap 6 (5-15); BUN 7 mg/dL (4-19); BUN/Creat Ratio 10.6 RATIO (10-20); Calcium,Total 7.3 mg/dL (7.6-11.0); Carbon Dioxide 33.9 mmol/L (21.0-32.0); Chloride 87 mmol/L (98-108); Estimated Creatinine Clearance 124.79 ml/min (50-250); Globulin 2.1 g/dL (2.2-4.2); Glucose 104 mg/dL (70-99); Potassium 3.1 mmol/L (3.3-5.1)
[2025-07-21] MEDS: Thiamine Hydrochloride 100 MG Tablet PO (09:18)
[2025-07-21] MEDS: Potassium Chloride Oral Tablet 20 MEQ PO ×2 (09:18→17:31)
[2025-07-21] MEDS: Magnesium Chloride 64 MG Delay Rel.Tablet 128 MG PO (09:20)
[2025-07-21] MEDS: Fluticasone 0.05% 1 SPRAY NASAL.SRY NASAL (09:21)
--- NOTE | 2025-07-21 11:18 | PN.HOSP_ITS ---
Reason for Visit Chief Complaint: Shortness of breath Subjective Subjective Patient is a 59-year-old gentleman resident at the [facility] who was brought to the emergency department for evaluation of 2-day duration of shortness of breath Objective Data Objective Data Vital Signs: Vital Signs Temp Pulse Resp BP Pulse Ox O2 Del Method O2 Flow Rate 99.2 F H 67 18 93/58 L 94 Nasal Cannula 2 07/21/25 09:02 07/21/25 09:02 07/21/25 09:02 07/21/25 09:02 07/21/25 09:02 07/21/25 09:35 07/21/25 09:35 Oxygen Flow Rate (L/min) 2 Oxygen Delivery Method Nasal Cannula Weight: 73.8 kg Body Mass Index (BMI) 23.3 Intake & Output: Intake and Output for Last 24 Hours 07/19/25 07/20/25 07/21/25 23:59 23:59 23:59 Intake Total 100 / 100 1537.75 / 1977.75 440 / 440 Output Total 1275 / 2075 800 / 800 Balance 100 / 100 262.75 / -97.25 -360 / -360 Lab / Micro Data 07/21/25 05:46 07/21/25 05:46 Labs: Laboratory Results - last 24 hr 07/21/25 05:46: WBC 2.6 L, RBC 2.90 L, Hgb 8.0 L, Hct 23.8 L, MCV 82.1, MCH 27.6, MCHC 33.6, RDW Std Deviation 44.6 H, RDW Coeff of Mery 14.6, Plt Count 130 L, MPV 8.8, Immature Gran % (Auto) 0.400, Neut % (Auto) 68.4, Lymph % (Auto) 19.1, Stephens % (Auto) 7.0, Eos % (Auto) 4.7, Baso % (Auto) 0.4, Absolute Neuts (auto) 1.8 L, Absolute Lymphs (auto) 0.49 L, Nucleated RBC % 0, Sodium 126 L, P otassium 3.1 L, Chloride 87 L, Carbon Dioxide 33.9 H, Anion Gap 6, BUN 7, C reatinine 0.65 L, Estim Creat Clear Calc 124.79, Est GFR (MDRD) Non-Af 108, BUN/Creatinine Ratio 10.6, Glucose 104 H, Calcium 7.3 L, Total Bilirubin 0.54, AST 30, ALT 10, Alkaline Phosphatase 384 H, Total Protein 4.2 L, Albumin 2.0 L, Globulin 2.1 L, Albumin/Globulin Ratio 1.0 Micro: Microbiology 07/20/25 08:20 Urine, Random Legionella Antigen - Final 07/20/25 08:20 Urine, Random Streptococcus pneumoniae Antigen (M - Final 07/20/25 05:40 Mucosa - Nasopharyngeal Respiratory Panel (PCR) - Final Human [place] 07/19/25 21:24 Mucosa - Nose SARS-CoV-2, Influenza & RSV (PCR) - Final Physical Exam Narrative GENERAL: cooperative HEENT: Atraumatic; normocephalic EYES; Anicteric, Normal Conjunctiva NECK; supple, normal thyroid, RESPIRATORY: Diminished to auscultation CARDIOVASCULAR: Regular S1 S2, GI: soft, normoactive bowel sounds, : No Renal angle tenderness; EXTREMITIES: No edema, no clubbing, MUSCULOSKELETAL: no muscle wasting NEURO: Awake; no lateralizing signs. SKIN: No Rash PSYCH; Flat affect Assessment & Plan Assessment/Plan (1) Metabolic alkalosis: (2) Elevated brain natriuretic peptide (BNP) level: (3) Elevated troponin I level: (4) Shortness of breath: (5) Hypomagnesemia: (6) Acute hypokalemia: (7) Hypoxia: (8) Ascites due to alcoholic cirrhosis: PLAN: Plan Patient is a 59-year-old gentleman resident at the [facility] who was brought to the emergency department for evaluation of 2-day duration of shortness of breath 1. Ascites secondary to cirrhosis of the liver ? Patient had 6.2 L of ascitic fluid removed on 07/20/2024 with 12.5 g of albumin ordered. Patient is on BB today at home Aldactone added 2. Acute dyspnea ? Secondary to mild ascites CT of the chest was negative for PE no any infiltrate 3. Acute human metapneumovirus infection ? Supportive care 4. Hypokalemia ? Secondary to diuretic therapy corrected per protocol 5. Hypomagnesemia ? Corrected per protocol 6. Elevated troponin ? Secondary to demand ischemia patient presentation not consistent with ACS 7. Anemia ? Secondary to chronic disorder monitoring H&H and transfuse if patient becomes symptomatic or hemoglobin falls below 7 8. Leukopenia ? Secondary to patient cirrhosis of the liver 9. Thrombocytopenia ? Secondary to cirrhosis of the liver 10. Pancytopenia ? Patient has anemia thrombocytopenia as well as leukopenia this is secondary to patient chronic liver disease will monitor 11. BPH with lower urinary obstructive symptoms - Patient treated with tamsulosin 12. Hypothyroidism ? Patient is on levothyroxine home dose continued 13. Allergic rhinitis/eczema ? Patient is on biologic therapy every 2 weeks in addition to nasal spray 14. GERD ? Patient is on PPI 15. Anxiety disorder ? Patient is on clonazepam and BuSpar 16. Recent left femoral fracture ? Requested for PT OT eval 17. DVT prophylaxis - Subcu enoxaparin 40 daily Time spent in the patient's overall evaluation,decision-making process, review of diagnostic data, adjustment of management, discussion with other providers, nursing nursing and ancillary staff involved in patient's care documentation, 40 Minutes Charges/Coding Visit Charges Inpatient E&M: 41930 [facility] Hosp L2
[2025-07-21] MEDS: Potassium Chloride Oral Tablet 20 MEQ 40 MEQ PO (11:57)
--- NOTE | 2025-07-21 12:22 | CASEMGMT ---
Addendum entered by Ajay Jones 07/21/25 12:27: [facility] Care Management team and DPA notified. Original Note: RN CM to the pt's room to discuss disposition planning. [facility] once medically ready under [facility]. Pt denies wanting to review a list of other local SNFs and states that he prefers [facility]. Pt denies further questions or concerns at this time.
--- NOTE | 2025-07-21 12:23 | CASEMGMT ---
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 Copy of advanced directives requested. Original Note: Discharge Planning Updates sent via [facility] to Maura at [facility]. Toña Beltrán DC Planning Asst.
--- NOTE | 2025-07-21 12:51 | CASEMGMT ---
Social Work LIZETH spoke with the patient. Patient reported he resides at the [facility] and prior to this he was at [facility]. He reported he does not have health insurance. Elisabeth with [facility] meet with the patient today. Patient is paying private pay at the [facility] and plans on returning there at [place]. LIZETH provided the patient with resources- [facility] assistance, prescription assistance, [place], [employer], and a Street card. Patient reported he has a HCPOA and his neighbor Joellen Lund and his sister Ruchi Cody are his POAs. SW requested a copy for his chart. BURTON Martel
[2025-07-21] MEDS: Heparin Injection (Vial) 5,000 UNIT/ML VIAL 5000 UNIT SC ×2 (14:56→20:45)
--- NOTE | 2025-07-21 16:12 | CASEMGMT ---
Social Work SW called the cousin Merle Green back. Merle reported that they want the patient transferred to [facility] because they have a financial agreement with them and the patient is covered at 100%. SW informed her normally a patient is not transferred unless its medically necessary. SW informed her SW would reached and ask the physician. Merle reported the patient gets paracentesis every 2 weeks and it has been 3 weeks since he got it. SW messaged the physician. BURTON Martel
--- NOTE | 2025-07-21 16:23 | CASEMGMT ---
Social Work SW called Joellen Garcia. Joellen reported she is his HCPOA. SW requested a copy of the HCPOA. She reported she will get a copy of the POA. She reported she did not know the patient was in the hospital. She asked why he was in the hospital. SW explained the hospital would need the HCPOA before discussing this information. Joellen reported she will call the patient. BURTON Martel
[2025-07-22] VITALS (7 sets, daily range): BP systolic 91–108; BP diastolic 61–71; PULSE 86–118; RESP 16–20; TEMP 36.8–36.9; O2SAT 93–98; BMI 23.3
[2025-07-22] MEDS: Heparin Injection (Vial) 5,000 UNIT/ML VIAL 5000 UNIT SC (05:06)
[2025-07-22 06:33] LABS: Hematocrit 24.8 % (40-54); Hemoglobin 8.1 g/dL (13.0-16.5); Immature Granulocytes Count 0.010 X10^3/uL (0.0-0.0); Mean Corp Hgb Conc 32.7 g/dL (32-36); Mean Corpuscular Volume 82.9 fL (80-94); Mean Platelet Vol. 9.3 fl (6.2-12.0); NRBC Flagged by Analyzer 0 % (0-5); POSITIVE DIFFERENTIAL YES; Platelet Count 126 K/mm3 (150-450); RBC Distribution Width CV 14.8 % (11.6-14.6); RBC Distribution Width SD 45.1 fl (35.1-43.9); Red Blood Count 2.99 M/mm3 (4.6-6.2); White Blood Count 2.5 K/mm3 (4.4-11.0)
[2025-07-22 06:35] LABS: Differential Indicated SCAN CRITERIA MET
[2025-07-22 07:04] LABS: Anion Gap 6 (5-15); BUN 8 mg/dL (4-19); BUN/Creat Ratio 11.4 RATIO (10-20); Calcium,Total 7.3 mg/dL (7.6-11.0); Carbon Dioxide 31.8 mmol/L (21.0-32.0); Chloride 91 mmol/L (98-108); Estimated Creatinine Clearance 112.65 ml/min (50-250); Glucose 98 mg/dL (70-99); Magnesium 1.5 mg/dL (1.5-2.2); Potassium 3.9 mmol/L (3.3-5.1)
--- NOTE | 2025-07-22 07:50 | PCM.PN.HOSP ---
Reason for Visit Chief Complaint: Shortness of breath Subjective Subjective Patient electrolytes improving sodium up to 129, Potassium up to 3.9. Plans for patient to be assessed for discharge Objective Data Objective Data Vital Signs: Vital Signs Temp Pulse Resp BP Pulse Ox O2 Del Method O2 Flow Rate 98.4 F 86 18 92/61 97 Room Air 2 07/22/25 02:00 07/22/25 02:00 07/22/25 02:00 07/22/25 02:00 07/22/25 02:00 07/22/25 03:00 07/21/25 20:48 Oxygen Flow Rate (L/min) 2 Oxygen Delivery Method Room Air Weight: 73.7 kg Body Mass Index (BMI) 23.3 Intake & Output: Intake and Output for Last 24 Hours 07/20/25 07/21/25 07/22/25 23:59 23:59 23:59 Intake Total 1537.75 / 1977.75 1890 / 1890 Output Total 1275 / 2075 2675 / 2675 200 / 200 Balance 262.75 / -97.25 -785 / -785 -200 / -200 Lab / Micro Data 07/22/25 05:26 07/22/25 05:26 Labs: Laboratory Results - last 24 hr 07/22/25 05:26: WBC 2.5 L, RBC 2.99 L, Hgb 8.1 L, Hct 24.8 L, MCV 82.9, MCH 27.1, MCHC 32.7, RDW Std Deviation 45.1 H, RDW Coeff of Mery 14.8 H, Plt Count 126 L, MPV 9.3, Immature Gran % (Auto) 0.400, Neut % (Auto) 70.9 H, Lymph % (Auto) 19.1, [place] % (Auto) 3.6, Eos % (Auto) 5.6 H, Baso % (Auto) 0.4, Absolute Neuts (auto) 1.8 L, Absolute Lymphs (auto) 0.48 L, Nucleated RBC % 0, Sodium 129 L, Potassium 3.9, Chloride 91 L, Carbon Dioxide 31.8, Anion Gap 6, BUN 8, Creatinine 0.72, Estim Creat Clear Calc 112.65, Est GFR (MDRD) Non-Af 105, BUN/Creatinine Ratio 11.4, Glucose 98, Calcium 7.3 L, Phosphorus 2.3 L, Magnesium 1.5 Micro: Microbiology 07/19/25 19:39 Blood Culture (Wb) - Venous Blood Culture - Preliminary No growth in 48 hours. 07/19/25 22:07 Blood Culture (Wb) - Venous Blood Culture - Preliminary No growth in 48 hours. 07/20/25 08:20 Urine, Random Legionella Antigen - Final 07/20/25 08:20 Urine, Random Streptococcus pneumoniae Antigen (M - Final 07/20/25 05:40 Mucosa - Nasopharyngeal Respiratory Panel (PCR) - Final Human [place] 07/19/25 21:24 Mucosa - Nose SARS-CoV-2, Influenza & RSV (PCR) - Final Radiography Diagnostic Testing: Radiology Impression Echocardiogram 07/20/25 03:29 Interpretation Summary Normal LV size. The left ventricular ejection fraction is 60 %. No regional wall motion abnormalities noted. Stage 1 diastolic dysfunction. Ordering Physician: Mira Guy Referring Physician: ESTEPHANIA SY Performed By: wIona Becker RCS Physical Exam Narrative GENERAL: cooperative HEENT: Atraumatic; normocephalic EYES; Anicteric, Normal Conjunctiva NECK; supple, normal thyroid, RESPIRATORY: Diminished to auscultation CARDIOVASCULAR: Regular S1 S2, GI: soft, normoactive bowel sounds, : No Renal angle tenderness; EXTREMITIES: No edema, no clubbing, MUSCULOSKELETAL: no muscle wasting NEURO: Awake; no lateralizing signs. SKIN: No Rash PSYCH; Flat affect Assessment & Plan Assessment/Plan (1) Metabolic alkalosis: (2) Elevated brain natriuretic peptide (BNP) level: (3) Elevated troponin I level: (4) Shortness of breath: (5) Hypomagnesemia: (6) Acute hypokalemia: (7) Hypoxia: (8) Ascites due to alcoholic cirrhosis: PLAN: Plan Patient is a 59-year-old gentleman resident [facility] the [facility] who was brought to the emergency department for evaluation of 2-day duration of shortness of breath 1. Ascites secondary to cirrhosis of the liver ? Patient had 6.2 L of ascitic fluid removed on 07/20/2024 with 12.5 g of albumin ordered. Patient is on BB today at home Aldactone added 2. Acute dyspnea ? Secondary to mild ascites CT of the chest was negative for PE no any infiltrate 3. Acute human metapneumovirus infection ? Supportive care 4. Hypokalemia ? Secondary to diuretic therapy corrected per protocol 5. Hypomagnesemia ? Corrected per protocol 6. Hyponatremia ? Secondary to fluid overload responded to treatment 7. Elevated troponin ? Secondary to demand ischemia patient presentation not consistent with ACS 8. Anemia ? Secondary to chronic disorder monitoring H&H and transfuse if patient becomes symptomatic or hemoglobin falls below 7 9. Leukopenia ? Secondary to patient cirrhosis of the liver 10. Thrombocytopenia ? Secondary to cirrhosis of the liver 11. Pancytopenia ? Patient has anemia thrombocytopenia as well as leukopenia this is secondary to patient chronic liver disease will monitor 12. BPH with lower urinary obstructive symptoms - Patient treated with tamsulosin 13. Hypothyroidism ? Patient is on levothyroxine home dose continued 14. Allergic rhinitis/eczema ? Patient is on biologic therapy every 2 weeks in addition to nasal spray 15. GERD ? Patient is on PPI 16. Anxiety disorder ? Patient is on clonazepam and BuSpar 17. Recent left femoral fracture ? Requested for PT OT eval 18. DVT prophylaxis - Subcu enoxaparin 40 daily Time spent in the patient's overall evaluation,decision-making process, review of diagnostic data, adjustment of management, discussion with other providers, nursing nursing and ancillary staff involved in patient's care documentation, 35 Minutes Charges/Coding Visit Charges Inpatient E&M: 71471 [facility] Hosp L2
[2025-07-22] MEDS: Magnesium Chloride 64 MG Delay Rel.Tablet 128 MG PO (08:31)
[2025-07-22] MEDS: Fluticasone 0.05% 1 SPRAY NASAL.SRY NASAL (08:33)
[2025-07-22] MEDS: Potassium Chloride Oral Tablet 20 MEQ PO (08:33)
[2025-07-22] MEDS: Thiamine Hydrochloride 100 MG Tablet PO (08:33)
--- NOTE | 2025-07-22 09:23 | CASEMGMT ---
Advanced Directives [place] does not have any advanced directives on file for pt. SW updated. Toña Beltrán DC Planning Asst.
--- NOTE | 2025-07-22 09:58 | PCM.TXEXTCAR ---
Diet Diet Order/Speech Therapy: INPATIENT Hospital Diet / Speech Therapy Order(s) 07/20/25 04:08 Diet: Regular - General Food consistency:: Regular Liquid Consistency:: Regular/Thin Routine Orders/Code Status Code Status: Full Code DC O2, CPAP, BIPAP needs Home O2 Discharge instructions: No Wound(s) right lower back: Wound Type: open scab Right lateral lower abdomen: Wound Type: Puncture Therapies Occupational Therapy: Eval and Treat Speech Therapy: Eval and Treat Problem/Diagnosis (1) Metabolic alkalosis: Status: Acute Code(s): E87.3 - Alkalosis (2) Elevated brain natriuretic peptide (BNP) level: Status: Acute Code(s): R79.89 - Other specified abnormal findings of blood chemistry (3) Elevated troponin I level: Status: Acute Code(s): R79.89 - Other specified abnormal findings of blood chemistry (4) Shortness of breath: Status: Acute Code(s): R06.02 - Shortness of breath (5) Hypomagnesemia: Status: Acute Code(s): E83.42 - Hypomagnesemia (6) Acute hypokalemia: Status: Acute Code(s): E87.6 - Hypokalemia (7) Hypoxia: Status: Acute Code(s): R09.02 - Hypoxemia (8) Ascites due to alcoholic cirrhosis: Status: Acute Code(s): K70.31 - Alcoholic cirrhosis of liver with ascites; K72.90 - Hepatic failure, unspecified without coma Plan Patient is a 59-year-old gentleman resident at the [facility] who was brought to the emergency department for evaluation of 2-day duration of shortness of breath 1. Ascites secondary to cirrhosis of the liver ? Patient had 6.2 L of ascitic fluid removed on 07/20/2024 with 12.5 g of albumin ordered. Patient is on BB today at home Aldactone added 2. Acute dyspnea ? Secondary to mild ascites CT of the chest was negative for PE no any infiltrate 3. Acute human metapneumovirus infection ? Supportive care 4. Hypokalemia ? Secondary to diuretic therapy corrected per protocol 5. Hypomagnesemia ? Corrected per protocol 6. Hyponatremia ? Secondary to fluid overload responded to treatment 7. Elevated troponin ? Secondary to demand ischemia patient presentation not consistent with ACS 8. Anemia ? Secondary to chronic disorder monitoring H&H and transfuse if patient becomes symptomatic or hemoglobin falls below 7 9. Leukopenia ? Secondary to patient cirrhosis of the liver 10. Thrombocytopenia ? Secondary to cirrhosis of the liver 11. Pancytopenia ? Patient has anemia thrombocytopenia as well as leukopenia this is secondary to patient chronic liver disease will monitor 12. BPH with lower urinary obstructive symptoms - Patient treated with tamsulosin 13. Hypothyroidism ? Patient is on levothyroxine home dose continued 14. Allergic rhinitis/eczema ? Patient is on biologic therapy every 2 weeks in addition to nasal spray 15. GERD ? Patient is on PPI 16. Anxiety disorder ? Patient is on clonazepam and BuSpar 17. Recent left femoral fracture ? Requested for PT OT eval 18. DVT prophylaxis - Subcu enoxaparin 40 daily Time spent in the patient's overall evaluation,decision-making process, review of diagnostic data, adjustment of management, discussion with other providers, nursing nursing and ancillary staff involved in patient's care documentation, 35 Minutes Allergies/Procedures Done in Hospital Allergies enoxaparin Allergy (Mild, Verified 07/19/25 20:57) Upset Stomach Penicillins Allergy (Unknown, Verified 07/19/25 20:57) PT UNSURE OF REACTION Type of Care/Length of Stay Estimated LOS: More Than 30 Days Type of Care Needed: Intermediate Rehab Potential: Fair Prognosis: Fair Additional Orders/Day of Discharge Day of Discharge: 07/22/25 Dietary and Speech Recommendations Dietitian Recommendations/Changes: Continue Regular diet to optimize oral intakes. Discharge Plan Admission Admit Date/Time: 07/20/25 03:15 Attending Provider: Jorge Luis Bustillo Primary Care Provider: Chandu Magana Consulting Providers: Mira Guy; Westley Crisostomo Discharge Orders/Prescriptions Prescriptions: New sennosides-docusate sodium [Stimulant Laxative Plus] 8.6-50 mg Tablet 2 tab PO BID PRN PRN (Reason: Constipation) Qty: 0 0RF spironolactone 50 mg Tablet 50 mg PO DAILYCM Qty: 30 0RF Continued aspirin 81 mg capsule 81 mg PO BID buspirone 7.5 mg tablet 7.5 mg PO BID docusate sodium [Col-Rite] 100 mg capsule 100 mg PO BID Dupixent Pen 300 mg/2 mL pen injector 300 mg subcut .q2w fluticasone propionate [24 Hour Allergy Relief] 50 mcg/actuation spray,suspension 1 spray intranasal DAILY Rx Instructions: administer into each nostril folic acid 1 mg tablet 1 mg PO DAILY guaifenesin 600 mg tablet extended release 12hr 600 mg PO BID levothyroxine 25 mcg tablet 25 mcg PO MOTUWETHFRSA levothyroxine [Euthyrox] 50 mcg tablet 50 mcg PO PARK magnesium gluconate [Mag-G] 27 mg magnesium (500 mg) tablet 27 mg PO DAILY miconazole nitrate [Antifungal (miconazole)] 2 % powder 1 applic topical DAILY sodium bicarbonate 650 mg tablet 650 mg PO BID pantoprazole 40 mg tablet,delayed release (DR/EC) 40 mg PO DAILY potassium chloride 20 mEq tablet extended release 20 meq PO DAILY DAILY VITAMIN FORMULA-MINERALS Tablet 1 tab PO DAILY tamsulosin [Flomax] 0.4 mg capsule 0.4 mg PO BID thiamine HCl (vitamin B1) 100 mg tablet 100 mg PO DAILY triamcinolone acetonide 0.1 % ointment 1 applic topical BID clonazepam 0.5 mg tablet 0.5 mg PO BID Qty: 4 0RF oxycodone 5 mg tablet 5 mg PO Q6H PRN PRN (Reason: pain) 2 Days Qty: 6 0RF Changed bumetanide 1 mg tablet 1 mg PO TID Qty: 90 0RF Discontinued clonazepam 1 mg tablet 1 mg PO BID PRN (Reason: anxiety) Referrals / Follow Up: Chandu Magana MD [Primary Care Provider, Medical] - In 1 Week Disposition Disposition (needs filled in before D/C Order can be placed): [facility]
--- NOTE | 2025-07-22 10:05 | DS.PCM_ITS ---
Providers Date of Admission: 07/20/25 Date of Discharge: 07/22/25 Primary Care Physician: Dr. Estephania Magana MD Reason For Visit: HYPOXIA/ELECTROLYTE ABNORMALITIES Diagnosis Discharge Diagnosis (1) Metabolic alkalosis: Status: Acute Code(s): E87.3 - Alkalosis (2) Elevated brain natriuretic peptide (BNP) level: Status: Acute Code(s): R79.89 - Other specified abnormal findings of blood chemistry (3) Elevated troponin I level: Status: Acute Code(s): R79.89 - Other specified abnormal findings of blood chemistry (4) Shortness of breath: Status: Acute Code(s): R06.02 - Shortness of breath (5) Hypomagnesemia: Status: Acute Code(s): E83.42 - Hypomagnesemia (6) Acute hypokalemia: Status: Acute Code(s): E87.6 - Hypokalemia (7) Hypoxia: Status: Acute Code(s): R09.02 - Hypoxemia (8) Ascites due to alcoholic cirrhosis: Status: Acute Code(s): K70.31 - Alcoholic cirrhosis of liver with ascites; K72.90 - Hepatic failure, unspecified without coma Plan Patient is a 59-year-old gentleman resident at the [facility] who was brought to the emergency department for evaluation of 2-day duration of shortness of breath 1. Ascites secondary to cirrhosis of the liver ? Patient had 6.2 L of ascitic fluid removed on 07/20/2024 with 12.5 g of albumin ordered. Patient is on BB today at home Aldactone added 2. Acute dyspnea ? Secondary to mild ascites CT of the chest was negative for PE no any infiltrate 3. Acute human metapneumovirus infection ? Supportive care 4. Hypokalemia ? Secondary to diuretic therapy corrected per protocol 5. Hypomagnesemia ? Corrected per protocol 6. Hyponatremia ? Secondary to fluid overload responded to treatment 7. Elevated troponin ? Secondary to demand ischemia patient presentation not consistent with ACS 8. Anemia ? Secondary to chronic disorder monitoring H&H and transfuse if patient becomes symptomatic or hemoglobin falls below 7 9. Leukopenia ? Secondary to patient cirrhosis of the liver 10. Thrombocytopenia ? Secondary to cirrhosis of the liver 11. Pancytopenia ? Patient has anemia thrombocytopenia as well as leukopenia this is secondary to patient chronic liver disease will monitor 12. BPH with lower urinary obstructive symptoms - Patient treated with tamsulosin 13. Hypothyroidism ? Patient is on levothyroxine home dose continued 14. Allergic rhinitis/eczema ? Patient is on biologic therapy every 2 weeks in addition to nasal spray 15. GERD ? Patient is on PPI 16. Anxiety disorder ? Patient is on clonazepam and BuSpar 17. Recent left femoral fracture ? Requested for PT OT eval 18. DVT prophylaxis - Subcu enoxaparin 40 daily Time spent in the patient's overall evaluation,decision-making process, review of diagnostic data, adjustment of management, discussion with other providers, nursing nursing and ancillary staff involved in patient's care documentation, 35 Minutes Medications at Discharge Home Medications aspirin 81 mg capsule 81 mg PO BID heart health 07/19/25 buspirone 7.5 mg tablet 7.5 mg PO BID 07/19/25 docusate sodium 100 mg capsule (Col-Rite) 100 mg PO BID stool softener 07/19/25 dupilumab 300 mg/2 mL subcutaneous pen injector (DupixFunding Gates) 300 mg subcut .q2w 07/19/25 fluticasone propionate 50 mcg/actuation nasal spray,suspension (24 Hour Allergy Relief) 1 spray intranasal DAILY 07/19/25 folic acid 1 mg tablet 1 mg PO DAILY supplement 07/19/25 guaifenesin 600 mg tablet, extended release 12 hr 600 mg PO BID cough 07/19/25 levothyroxine 25 mcg tablet 25 mcg PO MOTUWETHFRSA thyroid 07/19/25 levothyroxine 50 mcg tablet (Euthyrox) 50 mcg PO PARK thyroid 07/19/25 magnesium gluconate 27 mg magnesium (500 mg) tablet (Mag-G) 27 mg PO DAILY supplement 07/19/25 miconazole nitrate 2 % topical powder (Antifungal (miconazole)) 1 applic topical DAILY 07/19/25 multivitamin with minerals (DAILY VITAMIN FORMULA-MINERALS tablet) 1 tab PO DAILY supplement 07/19/25 pantoprazole 40 mg tablet,delayed release 40 mg PO DAILY GERD 07/19/25 potassium chloride 20 mEq tablet,extended release 20 meq PO DAILY 07/19/25 sodium bicarbonate 650 mg tablet 650 mg PO BID 07/19/25 tamsulosin 0.4 mg capsule (Flomax) 0.4 mg PO BID prostate health 07/19/25 thiamine HCl (vitamin B1) 100 mg tablet 100 mg PO DAILY supplement 07/19/25 triamcinolone acetonide 0.1 % topical ointment 1 applic topical BID dry skin 07/20/25 bumetanide 1 mg tablet 1 mg PO TID duretic #90 tabs 07/22/25 clonazepam 0.5 mg tablet 0.5 mg PO BID #4 tabs 07/22/25 oxycodone 5 mg tablet 5 mg PO Q6H PRN PRN pain 2 days #6 tabs 07/22/25 sennosides 8.6 mg-docusate sodium 50 mg tablet (Stimulant Laxative Plus) 2 tab PO BID PRN PRN Constipation #0 tabs 07/22/25 spironolactone 50 mg tablet 50 mg PO DAILYCM #30 tabs 07/22/25 Physical Exam Narrative GENERAL: cooperative HEENT: Atraumatic; normocephalic EYES; Anicteric, Normal Conjunctiva NECK; supple, normal thyroid, RESPIRATORY: Diminished to auscultation CARDIOVASCULAR: Regular S1 S2, GI: soft, normoactive bowel sounds, : No Renal angle tenderness; EXTREMITIES: No edema, no clubbing, MUSCULOSKELETAL: no muscle wasting NEURO: Awake; no lateralizing signs. SKIN: No Rash PSYCH; Flat affect Weight / BMI Weight Weight: 73.7 kg Body Mass Index (BMI) 23.3 ABG / Lab / Microbiology Data 07/22/25 05:26 07/22/25 05:26 Laboratory: Laboratory Results - last 24 hr 07/22/25 05:26: WBC 2.5 L, RBC 2.99 L, Hgb 8.1 L, Hct 24.8 L, MCV 82.9, MCH 27.1, MCHC 32.7, RDW Std Deviation 45.1 H, RDW Coeff of Mery 14.8 H, Plt Count 126 L, MPV 9.3, Immature Gran % (Auto) 0.400, Neut % (Auto) 70.9 H, Lymph % (Auto) 19.1, [place] % (Auto) 3.6, Eos % (Auto) 5.6 H, Baso % (Auto) 0.4, Absolute Neuts (auto) 1.8 L, Absolute Lymphs (auto) 0.48 L, Nucleated RBC % 0, Sodium 129 L, Potassium 3.9, Chloride 91 L, Carbon Dioxide 31.8, Anion Gap 6, BUN 8, Creatinine 0.72, Estim Creat Clear Calc 112.65, Est GFR (MDRD) Non-Af 105, BUN/Creatinine Ratio 11.4, Glucose 98, Calcium 7.3 L, Phosphorus 2.3 L, Magnesium 1.5 Microbiology: Microbiology 07/19/25 19:39 Blood Culture (Wb) - Venous Blood Culture - Preliminary No growth in 48 hours. 07/19/25 22:07 Blood Culture (Wb) - Venous Blood Culture - Preliminary No growth in 48 hours. 07/20/25 08:20 Urine, Random Legionella Antigen - Final 07/20/25 08:20 Urine, Random Streptococcus pneumoniae Antigen (M - Final 07/20/25 05:40 Mucosa - Nasopharyngeal Respiratory Panel (PCR) - Final Human [place] 07/19/25 21:24 Mucosa - Nose SARS-CoV-2, Influenza & RSV (PCR) - Final Radiography Diagnostic Testing: Radiology Impression Echocardiogram 07/20/25 03:29 Interpretation Summary Normal LV size. The left ventricular ejection fraction is 60 %. No regional wall motion abnormalities noted. Stage 1 diastolic dysfunction. Ordering Physician: Mira Guy Referring Physician: ESTEPHANIA SY Performed By: Iwona Becker RCS D/C Instructions DC O2, CPAP, BIPAP Needs Home O2 Discharge instructions: No Meaningful Use Info Meaningful Use Meaningful Use Diagnoses (Choose all that apply): None applicable Discharge Plan Admission Admit Date/Time: 07/20/25 03:15 Attending Provider: Jorge Luis Bustillo Primary Care Provider: Estephania Magana Consulting Providers: Mira Guy; Westley Crisostomo Discharge Orders/Prescriptions Prescriptions: New sennosides-docusate sodium [Stimulant Laxative Plus] 8.6-50 mg Tablet 2 tab PO BID PRN PRN (Reason: Constipation) Qty: 0 0RF spironolactone 50 mg Tablet 50 mg PO DAILYCM Qty: 30 0RF Continued aspirin 81 mg capsule 81 mg PO BID buspirone 7.5 mg tablet 7.5 mg PO BID docusate sodium [Col-Rite] 100 mg capsule 100 mg PO BID Dupixent Pen 300 mg/2 mL pen injector 300 mg subcut .q2w fluticasone propionate [24 Hour Allergy Relief] 50 mcg/actuation spray,suspension 1 spray intranasal DAILY Rx Instructions: administer into each nostril folic acid 1 mg tablet 1 mg PO DAILY guaifenesin 600 mg tablet extended release 12hr 600 mg PO BID levothyroxine 25 mcg tablet 25 mcg PO MOTUWETHFRSA levothyroxine [Euthyrox] 50 mcg tablet 50 mcg PO PARK magnesium gluconate [Mag-G] 27 mg magnesium (500 mg) tablet 27 mg PO DAILY miconazole nitrate [Antifungal (miconazole)] 2 % powder 1 applic topical DAILY sodium bicarbonate 650 mg tablet 650 mg PO BID pantoprazole 40 mg tablet,delayed release (DR/EC) 40 mg PO DAILY potassium chloride 20 mEq tablet extended release 20 meq PO DAILY DAILY VITAMIN FORMULA-MINERALS Tablet 1 tab PO DAILY tamsulosin [Flomax] 0.4 mg capsule 0.4 mg PO BID thiamine HCl (vitamin B1) 100 mg tablet 100 mg PO DAILY triamcinolone acetonide 0.1 % ointment 1 applic topical BID clonazepam 0.5 mg tablet 0.5 mg PO BID Qty: 4 0RF oxycodone 5 mg tablet 5 mg PO Q6H PRN PRN (Reason: pain) 2 Days Qty: 6 0RF Changed bumetanide 1 mg tablet 1 mg PO TID Qty: 90 0RF Discontinued clonazepam 1 mg tablet 1 mg PO BID PRN (Reason: anxiety) Referrals / Follow Up: Estephania Magana MD [Primary Care Provider, Medical] - In 1 Week Disposition Disposition (needs filled in before D/C Order can be placed): Long-Term Facility Charges/Coding Visit Charges Inpatient E&M: 32867 Disch Hosp >30min
--- NOTE | 2025-07-22 10:56 | CASEMGMT ---
Discharge Planning Discharge orders, signed med, and transport time sent via [facility] to [facility]. Physicians will transport pt by cot at 1:00p. Nursing, SW, pt, his friend Jaspreet Cody and Joellen Garcia updated. Toña Beltrán DC Planning Asst.
--- NOTE | 2025-07-22 12:14 | PHA.DC_ITS ---
Pharmacy [place] Med Reconciliation Pharmacy Service has performed discharge medication reconciliation for this patient upon transfer to [facility] The patient's discharge medication list was reviewed for discrepancies and discrepancies were resolved. Medications at Discharge Home Medications aspirin 81 mg capsule 81 mg PO BID heart health 07/19/25 buspirone 7.5 mg tablet 7.5 mg PO BID 07/19/25 docusate sodium 100 mg capsule (Col-Rite) 100 mg PO BID stool softener 07/19/25 dupilumab 300 mg/2 mL subcutaneous pen injector (Dupixent) 300 mg subcut .q2w 07/19/25 fluticasone propionate 50 mcg/actuation nasal spray,suspension (24 Hour Allergy Relief) 1 spray intranasal DAILY 07/19/25 folic acid 1 mg tablet 1 mg PO DAILY supplement 07/19/25 guaifenesin 600 mg tablet, extended release 12 hr 600 mg PO BID cough 07/19/25 levothyroxine 25 mcg tablet 25 mcg PO MOTUWETHFRSA thyroid 07/19/25 levothyroxine 50 mcg tablet (Euthyrox) 50 mcg PO PARK thyroid 07/19/25 magnesium gluconate 27 mg magnesium (500 mg) tablet (Mag-G) 27 mg PO DAILY supplement 07/19/25 miconazole nitrate 2 % topical powder (Antifungal (miconazole)) 1 applic topical DAILY 07/19/25 multivitamin with minerals (DAILY VITAMIN FORMULA-MINERALS tablet) 1 tab PO DAILY supplement 07/19/25 pantoprazole 40 mg tablet,delayed release 40 mg PO DAILY GERD 07/19/25 potassium chloride 20 mEq tablet,extended release 20 meq PO DAILY 07/19/25 sodium bicarbonate 650 mg tablet 650 mg PO BID 07/19/25 tamsulosin 0.4 mg capsule (Flomax) 0.4 mg PO BID prostate health 07/19/25 thiamine HCl (vitamin B1) 100 mg tablet 100 mg PO DAILY supplement 07/19/25 triamcinolone acetonide 0.1 % topical ointment 1 applic topical BID dry skin 07/20/25 bumetanide 1 mg tablet 1 mg PO TID duretic #90 tabs 07/22/25 clonazepam 0.5 mg tablet 0.5 mg PO BID #4 tabs 07/22/25 oxycodone 5 mg tablet 5 mg PO Q6H PRN PRN pain 2 days #6 tabs 07/22/25 sennosides 8.6 mg-docusate sodium 50 mg tablet (Stimulant Laxative Plus) 2 tab PO BID PRN PRN Constipation #0 tabs 07/22/25 spironolactone 50 mg tablet 50 mg PO DAILYCM #30 tabs 07/22/25
--- NOTE | 2025-07-22 15:24 | NURSING ---
Report called to JIGAR Dodd at [facility]. Physicians here at this time to transport patient.
== END 2025-07-22 15:32 | disposition skilled nursing facility (03) | DRG 433 ==
LOC: ED 23:04 → PCU 07-20 03:31
PROVIDERS: Admitting Provider Internal Medicine; Emergency Provider Student in an Organized Health Care Education/Training Program; PCP Family Medicine; Visit Provider Internal Medicine
DX: K70.31 Alcoholic cirrhosis of liver with ascites (principal); E87.3 Alkalosis; D61.818 Other pancytopenia; I24.89 Other forms of acute ischemic heart disease; E87.1 Hypo-osmolality and hyponatremia; D84.9 Immunodeficiency, unspecified; E03.9 Hypothyroidism, unspecified; D63.8 Anemia in other chronic diseases classified elsewhere; L30.9 Dermatitis, unspecified; E87.6 Hypokalemia; F41.9 Anxiety disorder, unspecified; E83.42 Hypomagnesemia; K21.9 Gastro-esophageal reflux disease without esophagitis; J30.9 Allergic rhinitis, unspecified; N13.9 Obstructive and reflux uropathy, unspecified; B34.8 Other viral infections of unspecified site; N40.1 Benign prostatic hyperplasia with lower urinary tract symptoms; Z79.82 Long term (current) use of aspirin; Z79.899 Other long term (current) drug therapy
CPT/HCPCS: 36415; 49082; 71275; 74177; 80048; 80053; 81001; 83605; 83690; 83735; 83880; 84100; 84443; 84484; 85025; 85610; 85730; 87040; 87070; 87205; 87449; 87631; 87633; 93005; 93306; 94640; 94668; 97110; 97162; 97166; 97530; 99252; 99285; P9047; Q9967; A4216; C8929; G0463

== ENCOUNTER 2025-08-08 18:01 | Emergency (ER) | payer OTHER, SELFPAY ==
[2025-08-08] VITALS (7 sets, daily range): BP systolic 106–119; BP diastolic 74–104; PULSE 82–98; RESP 10–18; TEMP 36.9; O2SAT 89–100
--- NOTE | 2025-08-08 19:00 | EKG12_ITS ---
Test Reason : DYSRHYTHMIA Blood Pressure : */* mmHG Vent. Rate : 93 BPM Atrial Rate : 93 BPM P-R Int : 216 ms QRS Dur : 84 ms QT Int : 380 ms P-R-T Axes : 55 239 51 degrees QTcB Int : 472 ms Sinus rhythm with 1st degree A-V block Possible Lateral infarct Inferior-posterior infarct Abnormal ECG Confirmed by ARASH KASPER, AYO ([id number]), international editorial producer PAULETTE BAE ([id number]) on 08/11/2025 6:50:38 AM Referred By: Confirmed By: AYO ANTOINE MD
--- NOTE | 2025-08-08 19:03 | EX.ED.DYSGE1 ---
HPI History of Present Illness Chief Complaint: Abn Labs Narrative Narrative: Chief complaint and HPI: 59-year-old male with past medical history of alcoholic cirrhosis, chronic hyponatremia, chronic hypokalemia presents for evaluation of hypokalemia. Patient states he resides at a care facility, [facility]. He states that he had basic labs performed today at the care facility in which his potassium was 2.6. They sent him to the emergency department. He states that yesterday they increased his potassium pill to 40 mill equivalents daily, prior to that he was on 20 mill equivalents daily. He denies any fever, chills, shortness of breath, chest pain, nausea, vomiting, confusion. At baseline he has decreased p.o. intake. Review of systems: See HPI Medications: As listed on the chart Allergies: As listed on the chart PFSH: Per chart Vital signs: As listed on the chart. Reviewed. Physical exam: Gen: A&O x3, NAD Head: Normocephalic, atraumatic Eyes: No sclera icterus, conjunctiva clear ENT: Moist mucous membranes CV: RRR, no murmurs, no peripheral edema Resp: Lungs CTA BL, no w/r/c GI: Abd soft, non-distended, non-tender, no r/r/g Musc: Moves all extremities, no deformity Skin: Warm, dry Psych: Cooperative, appropriate mood and affect PFS PFS Medical History Hip fracture requiring operative repair Chronic edema Hip fracture, left History of alcoholism Lymphopenia Chronic hyponatremia Chronic anemia Alcoholic cirrhosis of liver Home Medications ?Medication ?Instructions ?Recorded ?Last Taken ?Type buspirone 7.5 mg tablet 7.5 mg PO BID 07/19/25 08/08/25 History docusate sodium 100 mg capsule 100 mg PO BID stool softener 07/19/25 08/08/25 History (Col-Rite) dupilumab 300 mg/2 mL subcutaneous 300 mg subcut .q2w 07/19/25 08/06/25 History pen injector (Dupixent) fluticasone propionate 50 1 spray intranasal DAILY 07/19/25 08/08/25 History mcg/actuation nasal spray,suspension (24 Hour Allergy Relief) folic acid 1 mg tablet 1 mg PO DAILY supplement 07/19/25 08/08/25 History guaifenesin 600 mg tablet, 600 mg PO BID cough 07/19/25 08/08/25 History extended release 12 hr levothyroxine 25 mcg tablet 25 mcg PO MOTUWETHFRSA thyroid 07/19/25 08/08/25 History levothyroxine 50 mcg tablet 50 mcg PO PARK thyroid 07/19/25 08/03/25 History (Euthyrox) magnesium gluconate 27 mg 27 mg PO DAILY supplement 07/19/25 08/08/25 History magnesium (500 mg) tablet (Mag-G) multivitamin with minerals (DAILY 1 tab PO DAILY supplement 07/19/25 08/08/25 History VITAMIN FORMULA-MINERALS tablet) pantoprazole 40 mg tablet,delayed 40 mg PO DAILY GERD 07/19/25 08/08/25 History release potassium chloride 20 mEq 40 meq PO DAILY 07/19/25 08/08/25 History tablet,extended release sodium bicarbonate 650 mg tablet 650 mg PO BID 07/19/25 08/08/25 History tamsulosin 0.4 mg capsule (Flomax) 0.8 mg PO DAILY prostate health 07/19/25 08/07/25 History thiamine HCl (vitamin B1) 100 mg 100 mg PO DAILY supplement 07/19/25 08/08/25 History tablet triamcinolone acetonide 0.1 % 1 applic topical PRN dry skin 07/20/25 Unknown History topical ointment bumetanide 1 mg tablet 1 mg PO TID duretic #90 tabs 07/22/25 08/08/25 Rx clonazepam 0.5 mg tablet 0.5 mg PO BID #4 tabs 07/22/25 08/08/25 Rx sennosides 8.6 mg-docusate sodium 2 tab PO BID PRN PRN Constipation 07/22/25 Unknown Rx 50 mg tablet (Stimulant Laxative #0 tabs Plus) spironolactone 50 mg tablet 50 mg PO DAILYCM #30 tabs 07/22/25 08/08/25 Rx ondansetron HCl 4 mg tablet 4 mg PO Q4H 08/08/25 Unknown History Allergy/AdvReac Type Severity Reaction Status Date / Time enoxaparin Allergy Mild Upset Verified 08/08/25 18:05 Stomach Penicillins Allergy Unknown PT UNSURE Verified 08/08/25 18:05 OF REACTION Family History no significant family his Surgical History History of right hip replacement Social History Smoking Status: Never smoker EXAM Physical Exam Const Vital Signs: 08/08/25 18:02 08/08/25 18:07 08/08/25 20:02 Temperature 98.5 F Temperature Source Oral Pulse Rate 98 95 Respiratory Rate 18 Respiratory Effort Normal Non-Labored Respiratory Pattern Normal Blood Pressure 106/75 109/74 Blood Pressure Mean 85 85 Pulse Ox 100 99 Oxygen Delivery Method Room Air Room Air 08/08/25 22:00 Temperature Temperature Source Pulse Rate 82 Respiratory Rate Respiratory Effort Respiratory Pattern Blood Pressure 113/84 H Blood Pressure Mean 93 Pulse Ox 100 Oxygen Delivery Method Room Air MDM MDM MDM Narrative Medical decision making narrative: 59-year-old male with past medical history of alcoholic cirrhosis, chronic hyponatremia, chronic hypokalemia presents for evaluation of hypokalemia. Patient states he resides at a care facility, [facility]. He states that he had basic labs performed today at the care facility in which his potassium was 2.6. They sent him to the emergency department. He states that yesterday they increased his potassium pill to 40 mill equivalents daily, prior to that he was on 20 mill equivalents daily. He is asymptomatic from the hyperkalemia. Differential diagnosis includes but is not limited to hypokalemia, hypomagnesia him, electrolyte abnormality, dehydration. Basic labs ordered including a magnesium. Will get EKG. CBC without leukocytosis. Patient with a hemoglobin of 10.4. BMP shows chronic hyponatremia at 127. Patient is asymptomatic from this. Potassium 3.5. Magnesium is low at 1.4. Will replace this p.o. Given patient's hyponatremia, I did consult hospitalist, Dr. Shukla. Given this is chronic and that patient is asymptomatic recommends NS bolus and IV replacement of magnesium. Okay for discharge home with repeat labs outpatient. NS bolus and IV magnesium ordered. Patient was updated of the results and further understanding the plan. I did speak with the care facility, [facility] who is okay with the plan as well. Patient to be discharged after IV magnesium and NS bolus. EKG: Interpreted by me/EM physician: EKG shows sinus rhythm with first-degree AV block. No acute ischemic changes. Heart rate 93. Normal QTc. Impression: 1. Chronic hyponatremia 2. Hypomagnesemia Lab Data Labs: Laboratory Results - last 24 hr 08/08/25 18:14 WBC 5.2 RBC 3.81 L Hgb 10.4 L Hct 31.4 L MCV 82.4 MCH 27.3 MCHC 33.1 RDW Std Deviation 44.3 H RDW Coeff of Mery 14.6 Plt Count 306 MPV 9.4 Immature Gran % (Auto) 0.400 Neut % (Auto) 64.4 Lymph % (Auto) 25.0 [place] % (Auto) 7.5 Eos % (Auto) 2.3 Baso % (Auto) 0.4 Absolute Neuts (auto) 3.3 Absolute Lymphs (auto) 1.30 Nucleated RBC % 0 Sodium 127 L Potassium 3.5 Chloride 88 L Carbon Dioxide 27.4 Anion Gap 12 BUN 9 Creatinine 0.75 Est GFR (MDRD) Non-Af 103 BUN/Creatinine Ratio 12.6 Glucose 92 Calcium 8.3 Magnesium 1.4 L Discharge Plan Triage Chief Complaint: Abn Labs ED Provider: Huber Howe Dx/Rx/DC Orders Prescriptions: No Action buspirone 7.5 mg tablet 7.5 mg PO BID docusate sodium [Col-Rite] 100 mg capsule 100 mg PO BID Dupixent Pen 300 mg/2 mL pen injector 300 mg subcut .q2w fluticasone propionate [24 Hour Allergy Relief] 50 mcg/actuation spray,suspension 1 spray intranasal DAILY Rx Instructions: administer into each nostril folic acid 1 mg tablet 1 mg PO DAILY guaifenesin 600 mg tablet extended release 12hr 600 mg PO BID levothyroxine 25 mcg tablet 25 mcg PO MOTUWETHFRSA levothyroxine [Euthyrox] 50 mcg tablet 50 mcg PO PARK magnesium gluconate [Mag-G] 27 mg magnesium (500 mg) tablet 27 mg PO DAILY sodium bicarbonate 650 mg tablet 650 mg PO BID pantoprazole 40 mg tablet,delayed release (DR/EC) 40 mg PO DAILY potassium chloride 20 mEq tablet extended release 40 meq PO DAILY DAILY VITAMIN FORMULA-MINERALS Tablet 1 tab PO DAILY tamsulosin [Flomax] 0.4 mg capsule 0.8 mg PO DAILY thiamine HCl (vitamin B1) 100 mg tablet 100 mg PO DAILY triamcinolone acetonide 0.1 % ointment 1 applic topical PRN sennosides-docusate sodium [Stimulant Laxative Plus] 8.6-50 mg Tablet 2 tab PO BID PRN PRN (Reason: Constipation) Qty: 0 0RF spironolactone 50 mg Tablet 50 mg PO DAILYCM Qty: 30 0RF bumetanide 1 mg tablet 1 mg PO TID Qty: 90 0RF clonazepam 0.5 mg tablet 0.5 mg PO BID Qty: 4 0RF ondansetron HCl 4 mg tablet 4 mg PO Q4H Primary Care Provider: Chandu Magana Referrals: Chandu Magana MD [Primary Care Provider, Medical] Print Language: Sinhala
[2025-08-08 19:37] LABS: Hematocrit 31.4 % (40-54); Hemoglobin 10.4 g/dL (13.0-16.5); Immature Granulocytes Count 0.020 X10^3/uL (0.0-0.0); Mean Corp Hgb Conc 33.1 g/dL (32-36); Mean Corpuscular Volume 82.4 fL (80-94); Mean Platelet Vol. 9.4 fl (6.2-12.0); NRBC Flagged by Analyzer 0 % (0-5); Platelet Count 306 K/mm3 (150-450); RBC Distribution Width CV 14.6 % (11.6-14.6); RBC Distribution Width SD 44.3 fl (35.1-43.9); Red Blood Count 3.81 M/mm3 (4.6-6.2); White Blood Count 5.2 K/mm3 (4.4-11.0)
[2025-08-08 20:29] LABS: Anion Gap 12 (5-15); BUN 9 mg/dL (4-19); BUN/Creat Ratio 12.6 RATIO (10-20); Calcium,Total 8.3 mg/dL (7.6-11.0); Carbon Dioxide 27.4 mmol/L (21.0-32.0); Chloride 88 mmol/L (98-108); Glucose 92 mg/dL (70-99); Magnesium 1.4 mg/dL (1.5-2.2); Potassium 3.5 mmol/L (3.3-5.1)
[2025-08-08] MEDS: 0.9% Normal Saline (1000mL) 1,000 ML 1000 ML IV (21:16)
[2025-08-08] MEDS: Magnesium Chloride 64 MG Delay Rel.Tablet 128 MG PO (21:16)
[2025-08-08] MEDS: Magnesium Sulfate 2 GM in Dextrose 5%-Water (100mL Bag) 100 ML IV (21:40)
--- NOTE | 2025-08-08 22:56 | ED.RN ---
Attempted to call report to the [facility]. No answer.
[2025-08-09] VITALS (8 sets, daily range): BP systolic 100–110; BP diastolic 79–89; PULSE 88–95; RESP 13–18; O2SAT 95–99
== END 2025-08-09 02:26 | disposition home or self-care (01) ==
PROVIDERS: Emergency Provider Surgery; PCP Family Medicine; Visit Provider Surgery
DX: E87.1 Hypo-osmolality and hyponatremia (principal); E87.5 Hyperkalemia; E83.42 Hypomagnesemia; R79.9 Abnormal finding of blood chemistry, unspecified
CPT/HCPCS: 80048; 83735; 85025; 93005; 96365; 99285; A4216